=== PATIENT | female | born 1955 | race Caucasian/White ===

== ENCOUNTER 2018-10-28 16:27 | Emergency (ER) | payer OTHER ==
[~2018-10-28] VITALS: Ht 165.1 cm; Wt 127.0 kg
--- NOTE | 2018-10-28 16:35 | NUR ---
UPON TALKING TO PT - PT BEGAN DESCRIBING CHEST PRESSURE. PT TAKEN TO ROOM 08 FOR A EKG.
[2018-10-28 16:54] LABS: BASOPHILS % (AUTO) 0 % (0-10); EOSINOPHILS % (AUTO) 1 % (0-10); HEMATOCRIT 47 % (35-52); HEMOGLOBIN 15.9 G/DL (11.5-16.0); LYMPHOCYTES # (AUTO) 2.4 X 10^3 (1.0-4.0); LYMPHOCYTES % (AUTO) 30 % (12-44); MEAN CORPUSCULAR HEMOGLOBIN 32 PG (25-34); MEAN CORPUSCULAR HGB CONC 34 G/DL (32-36); MEAN CORPUSCULAR VOLUME 94 FL (80-99); MEAN PLATELET VOLUME 9.8 FL (7.4-10.4); MONOCYTES # (AUTO) 0.4 X 10^3 (0.0-1.0); MONOCYTES % (AUTO) 5 % (0-12); NEUTROPHILS # (AUTO) 5.2 X 10^3 (1.8-7.8); NEUTROPHILS % (AUTO) 65 % (42-75); PLATELET COUNT 267 10^3/uL (130-400); RED BLOOD COUNT 5.02 10^6/uL (4.35-5.85); RED CELL DISTRIBUTION WIDTH 14.1 % (10.0-14.5)
--- NOTE | 2018-10-28 16:56 | ED GI ---
General Chief Complaint: Abdominal/GI Problems Stated Complaint: SHAKY,VOMITTING,TINGLING, Nursing Triage Note: VOMITING STARTING YESTERDAY. COMPLAINS OF WEAKNESS, PALPITATIONS, SHAKEY, AND HANDS AND FEET ARE TINGLING. Sepsis Screen: No Definite Risk Source of Information: Patient Exam Limitations: No Limitations History of Present Illness Date Seen by Provider: Oct 28, 2018 Time Seen by Provider: 16:55 Initial Comments To ER with reports of dry heaving for 2 days, shakiness "on the inside", palpitations, tingling in her hands and feet. She does feel anxious. Timing/Duration: 1-2 Days Severity/Quality: Moderate Location: Generalized Abdomen Radiation: No Radiation Activities at Onset: None Associated Symptoms: Nausea/Vomiting Allergies and Home Medications Allergies Coded Allergies: cephalexin (Verified Allergy, Severe, HIVES, 10/28/18) hydromorphone (Verified Allergy, Severe, COMA, 10/28/18) codeine (Verified Allergy, Unknown, 10/28/18) famotidine (Verified Allergy, Unknown, 10/28/18) Patient Home Medication List Home Medication List Reviewed: Yes Review of Systems Review of Systems Constitutional: see HPI EENTM: No Symptoms Reported Respiratory: No Symptoms Reported Cardiovascular: No Symptoms Reported Gastrointestinal: See HPI, Nausea, Vomiting Genitourinary: No Symptoms Reported Musculoskeletal: no symptoms reported Skin: no symptoms reported Psychiatric/Neurological: See HPI, Anxiety Endocrine: No Symptoms Reported Hematologic/Lymphatic: No Symptoms Reported Past Ecuilto-Rnijbi-Kaygkh Hx Patient Social History Alcohol Use: Denies Use Recreational Drug Use: No Smoking Status: Current Everyday Smoker Recent Foreign Travel: No Contact w/Someone Who Travel: No Recent Infectious Disease Expo: No Recent Hopitalizations: No Physical Abuse: No Sexual Abuse: No Past Medical History Surgeries: Yes (GOITER REMOVED) Section Respiratory: No Cardiac: Yes High Cholesterol Neurological: No Genitourinary: No Gastrointestinal: No Musculoskeletal: No Endocrine: No HEENT: No Cancer: No Psychosocial: No Integumentary: No Physical Exam Vital Signs Vital Signs - First Documented 10/28/18 16:30 Temp 98.5 Pulse 108 Resp 16 B/P (MAP) 159/84 (109) Pulse Ox 95 O2 Delivery Room Air Capillary Refill : Less Than 3 Seconds Height/Weight/BMI Height: 5'5.00" Weight: 280lbs. oz. 127.417882nm; BMI Method:Stated General Appearance: WD/WN, no apparent distress HEENT: PERRL/EOMI, normal ENT inspection Neck: non-tender, full range of motion Respiratory: no respiratory distress, no accessory muscle use Cardiovascular: regular rate, rhythm, no murmur Gastrointestinal: normal bowel sounds, non tender, soft Extremities: normal range of motion, non-tender Neurologic/Psychiatric: alert, normal mood/affect, oriented x 3 Skin: normal color, warm/dry Progress/Results/Core Measures Results/Orders Lab Results Laboratory Tests Test 10/28/18 16:45 10/28/18 18:00 Range/Units White Blood Count 8.0 4.3-11.0 10^3/uL Red Blood Count 5.02 4.35-5.85 10^6/uL Hemoglobin 15.9 11.5-16.0 G/DL Hematocrit 47 35-52 % Mean Corpuscular Volume 94 80-99 FL Mean Corpuscular Hemoglobin 32 25-34 PG Mean Corpuscular Hemoglobin Concent 34 32-36 G/DL Red Cell Distribution Width 14.1 10.0-14.5 % Platelet Count 267 130-400 10^3/uL Mean Platelet Volume 9.8 7.4-10.4 FL Neutrophils (%) (Auto) 65 42-75 % Lymphocytes (%) (Auto) 30 12-44 % Monocytes (%) (Auto) 5 0-12 % Eosinophils (%) (Auto) 1 0-10 % Basophils (%) (Auto) 0 0-10 % Neutrophils # (Auto) 5.2 1.8-7.8 X 10^3 Lymphocytes # (Auto) 2.4 1.0-4.0 X 10^3 Monocytes # (Auto) 0.4 0.0-1.0 X 10^3 Eosinophils # (Auto) 0.0 0.0-0.3 10^3/uL Basophils # (Auto) 0.0 0.0-0.1 10^3/uL Sodium Level 138 135-145 MMOL/L Potassium Level 3.8 3.6-5.0 MMOL/L Chloride Level 100 98-107 MMOL/L Carbon Dioxide Level 25 21-32 MMOL/L Anion Gap 13 5-14 MMOL/L Blood Urea Nitrogen 6 L 7-18 MG/DL Creatinine 0.83 0.60-1.30 MG/DL Estimat Glomerular Filtration Rate > 60 BUN/Creatinine Ratio 7 Glucose Level 115 H 70-105 MG/DL Calcium Level 9.3 8.5-10.1 MG/DL Corrected Calcium 9.3 8.5-10.1 MG/DL Total Bilirubin 0.6 0.1-1.0 MG/DL Aspartate Amino Transf (AST/SGOT) 17 5-34 U/L Alanine Aminotransferase (ALT/SGPT) 16 0-55 U/L Alkaline Phosphatase 114 40-136 U/L Total Protein 6.9 6.4-8.2 GM/DL Albumin 4.0 3.2-4.5 GM/DL Lipase 19 8-78 U/L Urine Color YELLOW Urine Clarity CLEAR Urine pH 7 5-9 Urine Specific [place] 1.005 L 1.016-1.022 Urine Protein NEGATIVE NEGATIVE Urine Glucose (UA) NEGATIVE NEGATIVE Urine Ketones NEGATIVE NEGATIVE Urine Nitrite NEGATIVE NEGATIVE Urine Bilirubin NEGATIVE NEGATIVE Urine Urobilinogen NORMAL NORMAL MG/DL Urine Leukocyte Esterase 1+ H NEGATIVE Urine RBC (Auto) NEGATIVE NEGATIVE Urine RBC NONE /HPF Urine WBC RARE /HPF Urine Crystals NONE /LPF Urine Bacteria NONE /HPF Urine Casts NONE /LPF Urine Mucus NEGATIVE /LPF Urine Culture Indicated NO My Orders Orders - DONALD NEWBY APRN Cbc With Automated Diff (10/28/18 16:40) Comprehensive Metabolic Panel (10/28/18 16:40) Lipase (10/28/18 16:40) Ua Culture If Indicated (10/28/18 16:40) Iv Heplock-Insert (Order) (10/28/18 16:40) Lactated Ringers (Lr 1000 Ml Iv Solution (10/28/18 17:00) Ondansetron Injection (Zofran Injectio (10/28/18 17:00) Lorazepam Injection (Ativan Injection) (10/28/18 17:00) Lorazepam Injection (Ativan Injection) (10/28/18 17:45) Diphenhydramine Injection (Benadryl Inje (10/28/18 18:30) Diphenhydramine Injection (Benadryl Inje (10/28/18 18:30) Medications Given in ED Current Medications Medications Dose Ordered Sig/Noreen Route Start Time Stop Time Status Last Admin Dose Admin Diphenhydramine HCl 50 mg ONCE ONCE IVP 10/28/18 18:30 10/28/18 18:31 DC 10/28/18 18:27 50 MG Lorazepam 0.5 mg ONCE PRN IVP 10/28/18 17:00 10/28/18 18:11 0.5 MG Ondansetron HCl 4 mg ONCE ONCE IVP 10/28/18 17:00 10/28/18 17:01 DC 10/28/18 17:11 4 MG Vital Signs/I&O 10/28/18 16:30 Temp 98.5 Pulse 108 Resp 16 B/P (MAP) 159/84 (109) Pulse Ox 95 O2 Delivery Room Air Blood Pressure Mean: 109 Departure Impression Primary Impression: Anxiety Disposition: 01 HOME, SELF-CARE Condition: Stable Departure-Patient Inst. Decision time for Depature: 18:33 Patient Instructions: Anxiety, Adult (DC) Add. Discharge Instructions: 1. Return to ER for any concerns 2. Follow-up with your doctor next week 3. All discharge instructions reviewed with patient and/or family. Voiced understanding. DONALD NEWBY DIRECTOR OF CASINO Oct 28, 2018 16:56
[2018-10-28] MEDS ORDERED: ONDANSETRON 4 MG/2 ML (SDV) Z0FRAN IVP ONE (17:00)
[2018-10-28] MEDS ORDERED: LACTATED RINGERS 1,000 ML IV SCH (17:00)
[2018-10-28] MEDS: LORazepam INJ 2 MG/ML (ATIVAN) VIAL IVP PRN ×2 (17:11→18:11)
[2018-10-28 17:24] LABS: ALANINE AMINOTRANSFERASE 16 U/L (0-55); ALKALINE PHOSPHATASE 114 U/L (40-136); BILIRUBIN,TOTAL 0.6 MG/DL (0.1-1.0); BUN/CREATININE RATIO 7; CALCIUM 9.3 MG/DL (8.5-10.1); CARBON DIOXIDE 25 MMOL/L (21-32); CHLORIDE 100 MMOL/L (98-107); CREATININE SERUM 0.83 MG/DL (0.60-1.30); GFR ESTIMATED > 60; GLUCOSE 115 MG/DL (70-105); LIPASE 19 U/L (8-78); POTASSIUM 3.8 MMOL/L (3.6-5.0); SODIUM 138 MMOL/L (135-145); TOTAL PROTEIN 6.9 GM/DL (6.4-8.2)
[2018-10-28] MEDS ORDERED: LORazepam INJ 2 MG/ML (ATIVAN) VIAL IVP PRN (17:45)
[2018-10-28 18:07] LABS: BILIRUBIN,URINE NEGATIVE (NEGATIVE); CLARITY,URINE CLEAR; COLOR,URINE YELLOW; GLUCOSE, URINE (UA) NEGATIVE (NEGATIVE); KETONES,URINE NEGATIVE (NEGATIVE); LEUKOCYTE ESTERASE ,URINE 1+ (NEGATIVE); NITRITE,URINE NEGATIVE (NEGATIVE); PH,URINE 7 (5-9); PROTEIN,URINE NEGATIVE (NEGATIVE); UROBILINOGEN,URINE NORMAL (NORMAL)
[2018-10-28 18:15] LABS: WBC,URINE RARE /HPF
[2018-10-28] MEDS ORDERED: diphenhydrAMINE 50 MG/ML INJ (BENADRYL) IVP ONE ×2 (18:30)
[2018-10-28 19:00] VITALS: BP 146/82
== END 2018-10-28 19:00 | disposition home or self-care (01) ==
LOC: ER 16:29
DX: F41.9 Anxiety disorder, unspecified (principal); E78.00 Pure hypercholesterolemia, unspecified; F17.200 Nicotine dependence, unspecified, uncomplicated; Z98.890 Other specified postprocedural states; Z88.1 Allergy status to other antibiotic agents; Z88.5 Allergy status to narcotic agent; Z88.8 Allergy status to other drugs, medicaments and biological substances
CPT/HCPCS: 36415; 80053; 81000; 83690; 85025

== ENCOUNTER 2019-12-13 14:53 | Emergency (ER) | payer SELFPAY ==
[~2019-12-13] VITALS: Ht 162.5 cm; Wt 127.0 kg
[2019-12-13 15:07] VITALS: BP 151/75
[2019-12-13 16:08] LABS: BASOPHILS % (AUTO) 0 % (0-10); EOSINOPHILS % (AUTO) 0 % (0-10); HEMATOCRIT 40 % (35-52); HEMOGLOBIN 13.6 G/DL (11.5-16.0); LYMPHOCYTES # (AUTO) 0.9 X 10^3 (1.0-4.0); LYMPHOCYTES % (AUTO) 10 % (12-44); MEAN CORPUSCULAR HEMOGLOBIN 33 PG (25-34); MEAN CORPUSCULAR HGB CONC 34 G/DL (32-36); MEAN CORPUSCULAR VOLUME 96 FL (80-99); MEAN PLATELET VOLUME 8.5 FL (7.4-10.4); MONOCYTES # (AUTO) 0.6 X 10^3 (0.0-1.0); MONOCYTES % (AUTO) 6 % (0-12); NEUTROPHILS # (AUTO) 7.8 X 10^3 (1.8-7.8); NEUTROPHILS % (AUTO) 84 % (42-75); PLATELET COUNT 239 10^3/uL (130-400); RED CELL DISTRIBUTION WIDTH 14.4 % (10.0-14.5); WHITE BLOOD COUNT 9.4 10^3/uL (4.3-11.0)
--- NOTE | 2019-12-13 16:18 | Diagnostic Imaging Report ---
INDICATION: Fever and peripheral edema. EXAMINATION: PA and lateral chest. FINDINGS: Heart size and pulmonary vascularity are normal. Lungs are clear. There are no effusions or pneumothoraces. IMPRESSION: Negative chest. Dictated by: Dictated on workstation # [id number]
[2019-12-13 16:31] LABS: ALANINE AMINOTRANSFERASE 24 U/L (0-55); ALBUMIN 3.7 GM/DL (3.2-4.5); ALKALINE PHOSPHATASE 115 U/L (40-136); BILIRUBIN,TOTAL 0.6 MG/DL (0.1-1.0); BUN/CREATININE RATIO 7; CALCIUM 8.3 MG/DL (8.5-10.1); CARBON DIOXIDE 34 MMOL/L (21-32); CHLORIDE 81 MMOL/L (98-107); CREATININE SERUM 0.82 MG/DL (0.60-1.30); GFR ESTIMATED > 60; GLUCOSE 100 MG/DL (70-105); TOTAL PROTEIN 6.7 GM/DL (6.4-8.2)
[2019-12-13 16:32] LABS: SODIUM 120 MMOL/L (135-145)
--- NOTE | 2019-12-13 16:33 | NUR ---
LOW NA [address] BRUSH
[2019-12-13] MEDS ORDERED: KETOROLAC 30 MG/ML VIAL IVP ONE (17:30)
--- NOTE | 2019-12-13 17:48 | NUR ---
Pt reports feeling "centered" now and wants to leave AMA. Pt speaking with Dr. Acevedo.
--- NOTE | 2019-12-13 18:11 | ED General ---
General Chief Complaint: General Problems/Pain Stated Complaint: SWELLING IN LEGS/FEET Nursing Triage Note: has had a fever x 2 days and has swelling from her hips all the way down her legs, went to get into her vehicle to come to ED when she was not able to get into vehicle and had to have police assist her up and into vehicle, states she is not urinating properly Nursing Sepsis Screen: Possible Sepsis Risk Source of Information: Patient Exam Limitations: No Limitations History of Present Illness Date Seen by Provider: Dec 13, 2019 Time Seen by Provider: 15:02 Initial Comments This 64-year-old woman presents to the emergency room with primary complaint of swelling from her abdomen down through her feet. This is a new problem for her. She denies any history of congestive heart failure or hospitalization for diuresis. This has been most notable for the past 2 days. She also reports some shortness of air and cough. She had vomiting and diarrhea over the past week but that has since resolved. She complains of back aching as well. She is having some discomfort from being out of her Requip for the past 2 nights. She recently had her dose of Requip increased prior to that. She feels weak in the legs. Her primary care provider is Marleny Romero at [facility]. Allergies and Home Medications Allergies Coded Allergies: cephalexin (Verified Allergy, Severe, HIVES, 10/28/18) hydromorphone (Verified Allergy, Severe, COMA, 10/28/18) codeine (Verified Allergy, Unknown, 10/28/18) famotidine (Verified Allergy, Unknown, 10/28/18) Patient Home Medication List Home Medication List Reviewed: Yes Review of Systems Review of Systems Constitutional: see HPI EENTM: no symptoms reported Respiratory: see HPI Cardiovascular: see HPI Gastrointestinal: no symptoms reported Genitourinary: no symptoms reported : No Musculoskeletal: see HPI Skin: no symptoms reported Psychiatric/Neurological: See HPI Hematologic/Lymphatic: No Symptoms Reported Immunological/Allergic: no symptoms reported Past Ygxqobd-Jxprry-Ffmsve Hx Past Med/Social Hx: Reviewed and Corrections made Patient Social History Alcohol Use: Denies Use Recreational Drug Use: No Smoking Status: Current Everyday Smoker 2nd Hand Smoke Exposure: Yes Recent Foreign Travel: No Contact w/Someone Who Travel: No Recent Infectious Disease Expo: No Recent Hopitalizations: No Seasonal Allergies Seasonal Allergies: No Past Medical History Surgeries: Yes (GOITER REMOVED) Section Respiratory: Yes COPD Cardiac: Yes High Cholesterol Neurological: Yes (Restless leg syndrome) : No Genitourinary: No Gastrointestinal: No Musculoskeletal: No Endocrine: No HEENT: No Cancer: No Psychosocial: No Integumentary: No Family Medical History Reviewed and Corrections made Heart Disease (Heart failure) Physical Exam Vital Signs Vital Signs - First Documented 12/13/19 15:07 Temp 37.1 Pulse 100 Resp 22 B/P (MAP) 151/75 (100) Capillary Refill : Less Than 3 Seconds Height, Weight, BMI Height: 5'5.00" Weight: 280lbs. oz. 127.270745et; 48.00 BMI Method:Stated General Appearance: WD/WN, Mild Distress, Obese HEENT: PERRL/EOMI, Normal ENT Inspection Neck: Normal Inspection Respiratory: Lungs Clear, Normal Breath Sounds, No Accessory Muscle Use, No Respiratory Distress Cardiovascular: Regular Rate, Rhythm, No Murmur, Other (Pitting edema of the lower extremities, equal bilaterally) Gastrointestinal: Normal Bowel Sounds, Non Tender, Soft Extremity: Non Tender, Pedal Edema, Swelling Neurologic/Psychiatric: Alert, Oriented x3, No Motor/Sensory Deficits, Normal Mood/Affect, pmp certified project manager II-XII Norm as Tested Skin: Normal Color, Warm/Dry Progress/Results/Core Measures Suspected Sepsis Recent Fever Within 48 Hours: Yes Infection Criteria Present: Suspected New Infection New/Unexplained Altered Menta: No Sepsis Screen: Possible Sepsis Risk SIRS Temperature: Pulse: 100 Respiratory Rate: 22 Laboratory Tests 12/13/19 16:00: White Blood Count 9.4 Blood Pressure 151 /75 Mean: 100 Laboratory Tests 12/13/19 16:00: Creatinine 0.82, Platelet Count 239, Total Bilirubin 0.6 Results/Orders Lab Results Laboratory Tests Test 12/13/19 16:00 Range/Units White Blood Count 9.4 4.3-11.0 10^3/uL Red Blood Count 4.17 L 4.35-5.85 10^6/uL Hemoglobin 13.6 11.5-16.0 G/DL Hematocrit 40 35-52 % Mean Corpuscular Volume 96 80-99 FL Mean Corpuscular Hemoglobin 33 25-34 PG Mean Corpuscular Hemoglobin Concent 34 32-36 G/DL Red Cell Distribution Width 14.4 10.0-14.5 % Platelet Count 239 130-400 10^3/uL Mean Platelet Volume 8.5 7.4-10.4 FL Neutrophils (%) (Auto) 84 H 42-75 % Lymphocytes (%) (Auto) 10 L 12-44 % Monocytes (%) (Auto) 6 0-12 % Eosinophils (%) (Auto) 0 0-10 % Basophils (%) (Auto) 0 0-10 % Neutrophils # (Auto) 7.8 1.8-7.8 X 10^3 Lymphocytes # (Auto) 0.9 L 1.0-4.0 X 10^3 Monocytes # (Auto) 0.6 0.0-1.0 X 10^3 Eosinophils # (Auto) 0.0 0.0-0.3 10^3/uL Basophils # (Auto) 0.0 0.0-0.1 10^3/uL Sodium Level 120 *L 135-145 MMOL/L Potassium Level 4.0 3.6-5.0 MMOL/L Chloride Level 81 L 98-107 MMOL/L Carbon Dioxide Level 34 H 21-32 MMOL/L Anion Gap 5 5-14 MMOL/L Blood Urea Nitrogen 6 L 7-18 MG/DL Creatinine 0.82 0.60-1.30 MG/DL Estimat Glomerular Filtration Rate > 60 BUN/Creatinine Ratio 7 Glucose Level 100 70-105 MG/DL Calcium Level 8.3 L 8.5-10.1 MG/DL Corrected Calcium 8.5 8.5-10.1 MG/DL Total Bilirubin 0.6 0.1-1.0 MG/DL Aspartate Amino Transf (AST/SGOT) 32 5-34 U/L Alanine Aminotransferase (ALT/SGPT) 24 0-55 U/L Alkaline Phosphatase 115 40-136 U/L C-Reactive Protein High Sensitivity 2.36 H 0.00-0.50 MG/DL B-Type Natriuretic Peptide 42.7 <100.0 PG/ML Total Protein 6.7 6.4-8.2 GM/DL Albumin 3.7 3.2-4.5 GM/DL Thyroid Stimulating Hormone (TSH) 4.04 0.35-4.94 UIU/ML Free Thyroxine 1.10 0.70-1.48 NG/DL Micro Results Microbiology 12/13/19 Influenza Types A,B Antigen (JAMAL) - Final, Complete My Orders Orders - KEELY HSIEH MD BNP (12/13/19 15:02) Cbc With Automated Diff (12/13/19 15:02) Comprehensive Metabolic Panel (12/13/19 15:02) Ed Iv/Invasive Line Start (12/13/19 15:02) Hs C Reactive Protein (12/13/19 15:50) Influenza A And B Antigens (12/13/19 15:50) Chest Pa/Lat (2 View) (12/13/19 15:50) Ketorolac Injection (Toradol Injection) (12/13/19 17:30) Thyroid Stimulating Hormone (12/13/19 17:49) Free T4 (Free Thyroxine) (12/13/19 17:49) Medications Given in ED Current Medications Medications Dose Ordered Sig/Noreen Route Start Time Stop Time Status Last Admin Dose Admin Ketorolac Tromethamine 15 mg ONCE ONCE IVP 12/13/19 17:30 12/13/19 17:31 DC 12/13/19 17:44 15 MG Vital Signs/I&O 12/13/19 15:07 Temp 37.1 Pulse 100 Resp 22 B/P (MAP) 151/75 (100) Capillary Refill : Less Than 3 Seconds Blood Pressure Mean: 100 Progress Note : Progress Note Patient was found to have significant hyponatremia. Cymbalta and trazodone may be contributing factors to this as they both have known side effects of hyponatremia and SIADH. I strongly advised patient to be admitted for her safety while we work on correcting her hyponatremia. Patient refused and requested to leave AGAINST MEDICAL ADVICE. I advised her of the potential for Cymbalta and trazodone to be causing her hyponatremia. However, I also warned her against the possibility of withdrawal if she abruptly stops these medications. A taper would be more appropriate. Advised for follow up promptly with her primary care provider. I did advise her of the risks of returning home AGAINST MEDICAL ADVICE which would include worsening altered mental status, worsening weakness, potential for fall and injury, etc. Patient acknowledged these risks and still elected to leave AGAINST MEDICAL ADVICE. Patient's back pain was treated with Toradol. Diagnostic Imaging Diagonstic Imaging: Xray Plain Films/CT/US/NM/MRI: chest Comments NAME: JAYSON SOARES J MED REC#: [id number] PT STATUS: REG ER : 1955 PHYSICIAN: KEELY HSIEH MD ADMIT DATE: 12/13/19/ER Signed Date of Exam:12/13/19 CHEST PA/LAT (2 VIEW) INDICATION: Fever and peripheral edema. EXAMINATION: PA and lateral chest. FINDINGS: Heart size and pulmonary vascularity are normal. Lungs are clear. There are no effusions or pneumothoraces. IMPRESSION: Negative chest. Dictated by: Dictated on workstation # [id number] Dict: 12/13/19 1613 Trans: 12/13/19 1632 [id number] Interpreted by: AKIL LOWRY MD Electronically signed by: AKIL LOWRY MD 12/13/19 1632 Departure Impression Primary Impression: Hyponatremia Additional Impressions: Lower extremity edema Left against medical advice Low back pain Qualified Codes: M54.5 - Low back pain Disposition: 07 AGAINST MEDICAL ADVICE Condition: Against Medical Advice Departure-Patient Inst. Referrals: [facility] (PCP) Primary Care Physician Copy Copies To 1: WILL GARBER JOSHUA T MD Dec 13, 2019 18:10
[2019-12-13 18:29] LABS: FREE T4 (FREE THYROXINE) 1.1 NG/DL (0.70-1.48)
== END 2019-12-13 17:57 | disposition left against medical advice (07) ==
LOC: EDUNIT# 14:53 → ER 14:54
DX: E87.1 Hypo-osmolality and hyponatremia (principal); R60.0 Localized edema; M54.5 Low back pain; F17.210 Nicotine dependence, cigarettes, uncomplicated; Z82.49 Family history of ischemic heart disease and other diseases of the circulatory system; Z88.1 Allergy status to other antibiotic agents; Z88.5 Allergy status to narcotic agent; Z88.8 Allergy status to other drugs, medicaments and biological substances; Z98.890 Other specified postprocedural states
CPT/HCPCS: 36415; 71046; 80053; 83880; 84439; 84443; 85025; 86141; 87804

== ENCOUNTER → 2022-01-17 | Outpatient (CLI) | payer MEDICARE, MEDICAID ==
[~2022-01-17] MED LIST: RT-ALBUTEROL SULF 2.5 MG/3 ML PRE-MIX VIAL INH ONE
== END ==
LOC: RT 10:45
PROVIDERS: ATTEND Internal Medicine
DX: R06.2 Wheezing (principal)
CPT/HCPCS: 94060; 94726; 94729

== ENCOUNTER 2022-09-23 09:47 | Emergency (ER) | payer MEDICARE, MEDICAID ==
[~2022-09-23] VITALS: Ht 165.1 cm; Wt 127.0 kg
[2022-09-23] MEDS ORDERED: HYDROcodone/Chlorpen 10MG/5 ML (TUSSIONEX) 5ML UDC PO ONE (10:30)
--- NOTE | 2022-09-23 10:31 | ED Cough/URI ---
General Chief Complaint: Respiratory Problems Stated Complaint: SOB Source: patient Exam Limitations: no limitations History of Present Illness Date Seen by Provider: Sep 23, 2022 Time Seen by Provider: 10:20 Timing/Duration: week Severity/Quality: productive cough Prior Episodes/Possible Cause: occasional episodes Modifying Factors: Improves With Albuterol Inhaler, Improves With Albuterol Nebulizer; Worse With Lying Down; Improves With Oxygen Associated Symptoms: chest pain/soreness, cough, nasal congestion, nasal drainage, shortness of breath, sore throat, wheezing Allergies and Home Medications Allergies Coded Allergies: cephalexin (Verified Allergy, Severe, HIVES, 09/23/22) hydromorphone (Verified Allergy, Severe, COMA, 09/23/22) codeine (Verified Allergy, Unknown, 09/23/22) famotidine (Verified Allergy, Unknown, 09/23/22) Patient Home Medication List Home Medication List Reviewed: Yes Albuterol Sulfate (Albuterol Sulfate) 2.5 Mg/3 Ml (0.083 %) Vial.neb, 2.5 MG INH Q6H PRN for WHEEZING Prescribed by: FAY YIN on 09/23/22 1408 Amoxicillin (Amoxicillin) 875 Mg Tablet, 875 MG PO BID Prescribed by: FAY YIN on 09/23/22 1408 Azithromycin (Azithromycin) 250 Mg Tablet, 250 MG PO DAILY Prescribed by: FAY YIN on 09/23/22 1408 Hydrocodone/Chlorphen P-Stirex (Hydrocodone-Chlorphen ER Susp) 10 Mg-8 Mg/5 Ml Sara.er.12h, 5 ML PO Q6H PRN for cough/congestion Prescribed by: FAY YIN on 09/23/22 1412 Prednisone (Prednisone) 50 Mg Tab, 50 MG PO DAILY Prescribed by: FAY YIN on 09/23/22 1411 Review of Systems Review of Systems Constitutional: see HPI EENTM: nose congestion Respiratory: cough, phlegm, short of breath Cardiovascular: no symptoms reported Gastrointestinal: loss of appetite Genitourinary: no symptoms reported Musculoskeletal: no symptoms reported Skin: no symptoms reported Psychiatric/Neurological: Headache All Other Systems Reviewed Negative Unless Noted: Yes Past Imbvxdg-Anrdll-Xfmzew Hx Patient Social History Tobacco Use?: Yes Tobacco type used: Cigarettes Smoking Status: Current Everyday Smoker Substance use?: No Alcohol Use?: No Pt feels they are or have been: No Immunizations Up To Date Influenza Vaccine Up-to-Date: Yes; Up-to-Date First/Initial COVID19 Vaccinat: 2020 Second COVID19 Vaccination Lalit: 2020 COVID19 Vaccine Dynamics Ax Technical Architect: adrienne Seasonal Allergies Seasonal Allergies: No Past Medical History Surgery/Hospitalization HX: RLS, HTN, GERD, COPD Surgeries: Yes (GOITER REMOVED) Section Respiratory: Yes COPD Cardiac: Yes High Cholesterol Neurological: Yes (Restless leg syndrome) Genitourinary: No Gastrointestinal: No Musculoskeletal: No Endocrine: No HEENT: No Cancer: No Psychosocial: No Integumentary: No Family Medical History Heart Disease Physical Exam Vital Signs - First Documented 09/23/22 09:50 Temp 36.8 Pulse 104 Resp 13 B/P (MAP) 176/83 (114) Pulse Ox 100 O2 Delivery Nasal Cannula O2 Flow Rate 2.00 Capillary Refill : Height: 5'5.00" Weight: 280lbs. oz. 127.487703rp; 48.00 BMI Method:Stated General Appearance: WD/WN, mild distress Eyes: Bilateral Eye Normal Inspection, Bilateral Eye PERRL, Bilateral Eye EOMI HEENT: PERRL/EOMI, normal ENT inspection, TMs normal, pharynx normal, other (nasal mucosal congestion) Neck: full range of motion, supple Respiratory: other (Coarse expiratory rhonchus/wheezy breath sounds with coarse wet cough noted. No increased work of breathing or respiratory distress.) Cardiovascular: regular rate, rhythm, tachycardia (100) Gastrointestinal: non tender, soft Extremities: normal range of motion, non-tender, normal inspection, no pedal edema Neurologic/Psychiatric: alert, normal mood/affect, oriented x 3 Skin: normal color, warm/dry Progress/Results/Core Measures Suspected Sepsis SIRS Temperature: Pulse: Respiratory Rate: Blood Pressure / Mean: Results/Orders Lab Results Laboratory Tests Test 09/23/22 10:00 Range/Units Influenza Type A (RT-PCR) Not Detected Not Detecte Influenza Type B (RT-PCR) Not Detected Not Detecte SARS-CoV-2 RNA (RT-PCR) Not Detected Not Detecte My Orders Orders - FAY YIN MD Chest 1 View, Ap/Pa Only (09/23/22 10:28) Covid 19 Inhouse Test (09/23/22 10:28) Influenza A And B By Pcr (09/23/22 10:28) Isolation Central Supply Req (09/23/22 10:28) Hydrocodone/Chlorphen Susp (Tussionex Sadler (09/23/22 10:30) Albuterol Pre-Mix Nebs (Rt) (Proventil (09/23/22 11:45) Albuterol/Ipra Inhalation Soln (Duoneb I (09/23/22 11:45) Svn Small Volume Nebulizer (09/23/22 11:45) Svn Small Volume Nebulizer (09/23/22 11:45) Prednisone Tablet (Deltasone Tablet) (09/23/22 11:45) Communication For Respiratory (09/23/22 11:45) Azithromycin Tablet (Zithromax Tablet) (09/23/22 14:15) Amoxicillin/Clavulanate Tablet (Augmenti (09/23/22 14:01) Medications Given in ED Current Medications Medications Dose Ordered Sig/Noreen Route Start Time Stop Time Status Last Admin Dose Admin Albuterol Sulfate 10 mg ONCE ONCE INH 09/23/22 11:45 09/23/22 11:47 DC 09/23/22 12:17 10 MG Albuterol/ Ipratropium 3 ml ONCE ONCE INH 09/23/22 11:45 09/23/22 11:47 DC 09/23/22 12:17 3 ML Azithromycin 500 mg ONCE ONCE PO 09/23/22 14:15 09/23/22 14:16 09/23/22 14:10 500 MG Chlorphenir/ Hydrocodone Polistirex 5 ml ONCE ONCE PO 09/23/22 10:30 09/23/22 10:31 DC 09/23/22 11:36 5 ML Prednisone 50 mg ONCE ONCE PO 09/23/22 11:45 09/23/22 11:47 DC 09/23/22 12:12 50 MG Vital Signs/I&O 09/23/22 09/23/22 09:50 12:21 Temp 36.8 Pulse 104 Resp 13 B/P (MAP) 176/83 (114) Pulse Ox 100 100 O2 Delivery Nasal Cannula Nasal Cannula O2 Flow Rate 2.00 2.00 Capillary Refill : Progress Note : Time: 14:02 Progress Note Patient seen and evaluated, productive cough over the last 4 to 5 days, subjective fevers chills, congestion. Evaluation today includes physical exam with flu and COVID testing, chest x-ray. She is treated with prednisone, nausea medication and urag-bt-wmsf breathing treatments. Reexamined approximately 30 minutes after her breathing treatment was completed patient feels much much better. Laying in the bed however she does drop her oxygen sats down to 88%. She is in no respiratory distress when she sits up and coughs and clears her lungs her sats come up to 95 to 96% on room air. She is still tachy at 110 - up to 122 when she coughs and talks. (did have almost an hour long albuterol treatment and duoneb). SHe clinically is not dehydrated. No increased work of breathing or distress. No vomiting and tolerating fluids orally well. She does not use home oxygen. Has a nebulizer. She is not very interested in staying in the hospital. I talked to her about staying active at home, checking her pulse ox frequently and being compliant wi th her medications. We will send her home with prescriptions for amoxicillin 875 twice daily for 10 days as well as azithromycin. She will need medications for cough as well as her nebulizer and some nausea medications. She is encouraged to drink plenty of fluids. Smoking cessation is encouraged. Strict return precautions given and the patient verbalized understanding and agreement that if her pulse ox dropped below 90 and she is feeling worse after the next 24 to 48 hours on antibiotics she will come back to the emergency department. is comfortable with the plan of care. All questions are sought and answered. Patient is stable for discharge. Diagnostic Imaging Diagonstic Imaging: Xray Plain Films/CT/US/NM/MRI: chest Comments [facility], [facility]. [place], [place] NAME: JAYSON SOARES MED REC#: [id number] PT STATUS: REG ER : 1955 PHYSICIAN: FAY YIN MD ADMIT DATE: 09/23/22/ER Draft Date of Exam:09/23/22 CHEST 1 VIEW, AP/PA ONLY CLINICAL INDICATION: Patient with shortness of breath and productive cough. EXAM: Portable chest x-ray upright view. COMPARISON: Chest x-ray dated 12/13/2019. FINDINGS: Lungs/pleura: There is mild bibasilar atelectasis versus infiltrates. There is no pneumothorax. There is no pleural effusion. Mediastinum: Unremarkable. Pulmonary vasculature: Unremarkable. Heart: There is cardiomegaly. Bones/extrathoracic soft tissue: There are degenerative spurs involving the thoracic spine. IMPRESSION: 1: There is mild bibasilar atelectasis versus infiltrates. 2: There is cardiomegaly with no significant pulmonary vascular congestion. Dictated on workstation # [id number] Dict: 09/23/22 1139 Trans: 09/23/22 1145 CV [id number] Interpreted by: JUDITH GUERRA MD Electronically signed by: Departure Impression Primary Impression: Acute exacerbation of chronic obstructive pulmonary disease (COPD) Additional Impression: Pneumonia Qualified Codes: J18.9 - Pneumonia, unspecified organism Disposition: 01 HOME, SELF-CARE Condition: Improved Departure-Patient Inst. Decision time for Depature: 12:20 Referrals: [facility] [place] [facility] [place]/Family) Primary Care Physician Patient Instructions: Pneumonia, Adult (DC) Add. Discharge Instructions: Use the albuterol in her nebulizer every 6 hours as needed for shortness of breath. If you have enough of the double medication you can alternate that with the albuterol. Take the antibiotics as prescribed. 1 will be for a course of 10 days 1 for 4 more days after today. Use the Tussionex as needed for cough. 1 teaspoon every 6 hours. This medication can make you sleepy do not drive and take it. It does contain h ydrocodone. It can be habit-forming. It can also cause constipation. Prednisone 50 mg once a day starting tomorrow for 4 days. Monitor your oxygen with your finger monitor at home. If you find that you are dipping down repeatedly below 90% you need to come back to the emergency department and you will be admitted. Return to the emergency room for any other new, concerning or emergent complaints. Please follow-up with your primary care doctor this week as well. Scripts Hydrocodone/Chlorphen P-Stirex (Hydrocodone-Chlorphen ER Susp) 10 Mg-8 Mg/5 Ml Sara.er.12h 5 ML PO Q6H PRN for cough/congestion, #100 ML Prov: FAY YIN MD 09/23/22 Prednisone (Prednisone) 50 Mg Tab 50 MG PO DAILY for 4 Days, #4 TAB Prov: FAY YIN MD 09/23/22 Azithromycin (Azithromycin) 250 Mg Tablet 250 MG PO DAILY, #4 TAB 0 Refills Prov: FAY YIN MD 09/23/22 Amoxicillin (Amoxicillin) 875 Mg Tablet 875 MG PO BID, #19 TAB Prov: FAY YIN MD 09/23/22 Albuterol Sulfate (Albuterol Sulfate) 2.5 Mg/3 Ml (0.083 %) Vial.neb 2.5 MG INH Q6H PRN for WHEEZING, #50 EA 1 Refill Prov: FAY YIN MD 09/23/22 FAY YIN MD Sep 23, 2022 10:31
[2022-09-23] MEDS ORDERED: RT-ALBUTEROL/IPRATROPIUM 3 ML (DUONEB) VIAL INH ONE (11:45)
[2022-09-23] MEDS ORDERED: predniSONE 20 MG TAB PO ONE (11:45)
[2022-09-23] MEDS ORDERED: RT-ALBUTEROL SULF 2.5 MG/3 ML PRE-MIX VIAL INH ONE (11:45)
--- NOTE | 2022-09-23 11:45 | Diagnostic Imaging Report ---
CLINICAL INDICATION: Patient with shortness of breath and productive cough. EXAM: Portable chest x-ray upright view. COMPARISON: Chest x-ray dated 12/13/2019. FINDINGS: Lungs/pleura: There is mild bibasilar atelectasis versus infiltrates. There is no pneumothorax. There is no pleural effusion. Mediastinum: Unremarkable. Pulmonary vasculature: Unremarkable. Heart: There is cardiomegaly. Bones/extrathoracic soft tissue: There are degenerative spurs involving the thoracic spine. IMPRESSION: 1: There is mild bibasilar atelectasis versus infiltrates. 2: There is cardiomegaly with no significant pulmonary vascular congestion. Dictated by: Dictated on workstation # [id number]
[2022-09-23] MEDS ORDERED: AUGMENTIN 875 MG TAB (AMOXICILLIN/CLAVULANATE) PO STA (14:01)
[2022-09-23] MEDS ORDERED: AZIT250T12 PO (14:08)
[2022-09-23] MEDS ORDERED: ALBU2.5V4 INH (14:08)
[2022-09-23] MEDS ORDERED: AMOX875T2 PO (14:08)
[2022-09-23] MEDS ORDERED: PRD50T PO (14:11)
[2022-09-23] MEDS ORDERED: HYDR473S61 PO (14:11)
[2022-09-23] MEDS ORDERED: AZITHROMYCIN 250 MG TAB (ZITHROMAX) PO ONE (14:15)
[2022-09-23 14:24] VITALS: BP 165/76
== END 2022-09-23 14:31 | disposition home or self-care (01) ==
LOC: EDUNIT# 09:47 → ER 09:49
DX: J44.1 Chronic obstructive pulmonary disease with (acute) exacerbation (principal); J18.9 Pneumonia, unspecified organism; F17.210 Nicotine dependence, cigarettes, uncomplicated; Z20.822 Contact with and (suspected) exposure to COVID-19
CPT/HCPCS: 71045; 87636; 94640

== ENCOUNTER 2023-01-25 13:53 | Emergency (ER) | payer MEDICARE, MEDICAID ==
[~2023-01-25] VITALS: Ht 165 cm; Wt 117.0 kg
[~2023-01-25 13:53] MED LIST changes: +ALBU2.5V4 INH; +AMOX875T2 PO; +AZIT250T12 PO; +HYDR473S61 PO; +PRD50T PO; -RT-ALBUTEROL SULF 2.5 MG/3 ML PRE-MIX VIAL INH ONE
[2023-01-25] MEDS ORDERED: HYDROcodone/APAP 7.5 MG/325 MG (LORTAB, LORCET PLUS) TABLET PO STA (14:44)
[2023-01-25] MEDS ORDERED: ORPHENADRINE 60 MG/2 ML (NORFLEX) AMP (ED ONLY) IM ONE (14:45)
[2023-01-25] MEDS ORDERED: KETOROLAC 30 MG/ML VIAL IM ONE (14:45)
--- NOTE | 2023-01-25 14:47 | ED Back Pain ---
General Chief Complaint: Back Problems Stated Complaint: BACK PAIN Nursing Triage Note: PT PRESENTS TO ED WITH C/O LOW BACK PAIN THAT RADIATES DOWN LEFT LEG AFTER FEELING A "PULL" WHILE MOVING HER BEDROOM FURNITURE AROUND YESTERDAY. PT HAS HX OF SCIATICA ISSUES AND IS PRESCRIBED TRAMADOL. PT TOOK TRAMADOL AND TRIED BIOFREEZE BUT NEITHER HELPED THE PAIN. PT AMBULATED WITH CANE TO ROOM 07. Source of Information: Patient Exam Limitations: No Limitations History of Present Illness Date Seen by Provider: Jan 25, 2023 Time Seen by Provider: 14:45 Initial Comments Patient is a 67-year-old female presents ED with low back pain. Back pain started yesterday afternoon after she was moving furniture. [place] a sharp pain on the left side of her lower back. Pain has been constant. Sharp shooting radiating pain to the left knee with a history of sciatica. She did take some tramadol at home and arthritis Exer strength Tylenol without much improvement. Denies falling or any trauma. Patient denies of any saddle paresthesia, bowel or urine incontinence, lower extremity weakness. She states this pain feels very similar to her when she aggravates her sciatica. She denies fever, chills, headache, dizziness, nausea, vomiting, diarrhea Allergies and Home Medications Allergies Coded Allergies: cephalexin (Verified Allergy, Severe, HIVES, 09/23/22) hydromorphone (Verified Allergy, Severe, COMA, 09/23/22) codeine (Verified Allergy, Unknown, 09/23/22) famotidine (Verified Allergy, Unknown, 09/23/22) Patient Home Medication List Home Medication List Reviewed: Yes Albuterol Sulfate (Albuterol Sulfate) 2.5 Mg/3 Ml (0.083 %) Vial.neb, 2.5 MG INH Q6H PRN for WHEEZING Prescribed by: FAY YIN on 09/23/22 1408 Amoxicillin (Amoxicillin) 875 Mg Tablet, 875 MG PO BID Prescribed by: FAY YIN on 09/23/22 1408 Azithromycin (Azithromycin) 250 Mg Tablet, 250 MG PO DAILY Prescribed by: FAY YIN on 09/23/22 1408 Hydrocodone/Acetaminophen (Hydrocodone-Acetamin 5-325 mg) 5 Mg-325 Mg Tablet, 1 TAB PO Q4H PRN for PAIN-MODERATE (5-7) Prescribed by: LILY CONTRERAS on 01/25/23 1554 Hydrocodone/Chlorphen P-Stirex (Hydrocodone-Chlorphen ER Susp) 10 Mg-8 Mg/5 Ml Sara.er.12h, 5 ML PO Q6H PRN for cough/congestion Prescribed by: FAY YIN on 09/23/22 1412 Methocarbamol (Methocarbamol) 750 Mg Tablet, 750 MG PO Q6-8HR Prescribed by: ILLY CONTRERAS on 01/25/23 1554 Prednisone (Prednisone) 50 Mg Tab, 50 MG PO DAILY Prescribed by: FAY YIN on 09/23/22 1411 Review of Systems Constitutional: No chills, No diaphoresis, No malaise EENTM: No ear discharge, No blurred vision, No double vision Respiratory: No cough, No dyspnea on exertion Cardiovascular: No chest pain, No edema Gastrointestinal: No RUQ, No abdominal pain, No nausea, No vomiting Genitourinary: No decreased output, No discharge Musculoskeletal: back pain; No joint swelling; muscle pain, muscle stiffness Skin: No change in color, No change in hair/nails All Other Systems Reviewed Negative Unless Noted: Yes Past Ctnidrd-Xcfaqx-Rrzqad Hx Patient Social History Tobacco Use?: Yes Tobacco type used: Cigarettes Smoking Status: Current Everyday Smoker Substance use?: No Alcohol Use?: No Immunizations Up To Date Influenza Vaccine Up-to-Date: Yes; Up-to-Date First/Initial COVID19 Vaccinat: 2020 Second COVID19 Vaccination Lalit: 2020 Seasonal Allergies Seasonal Allergies: No Past Medical History Surgery/Hospitalization HX: RLS, HTN, GERD, COPD Surgeries: Yes (GOITER REMOVED) Section Respiratory: Yes COPD Cardiac: Yes High Cholesterol Neurological: Yes (Restless leg syndrome) Genitourinary: No Gastrointestinal: No Musculoskeletal: No Endocrine: No HEENT: No Cancer: No Psychosocial: No Integumentary: No Family Medical History Heart Disease Physical Exam Vital Signs Vital Signs - First Documented 01/25/23 14:09 Temp 35.5 Pulse 91 Resp 22 B/P (MAP) 147/102 (117) Pulse Ox 95 O2 Delivery Room Air Capillary Refill : Height, Weight, BMI Height: 5'5.00" Weight: 280lbs. oz. 127.137098wi; 42.00 BMI Method:Stated General Appearance: No Apparent Distress, WD/WN HEENT: PERRL/EOMI, TMs Normal, Normal ENT Inspection Neck: Full Range of Motion, Normal Inspection, Non Tender, Supple Cardiovascular: Regular Rate, Rhythm, No Edema, No Gallop, No JVD Respiratory: Chest Non Tender, Lungs Clear, Normal Breath Sounds, No Accessory Muscle Use Gastrointestinal: Normal Bowel Sounds, No Organomegaly, No Pulsatile Mass, Non Tender Back: Other (No thoracic or lumbar midline tenderness. Left lumbar and buttock tenderness on palpation. Pain with flexion) Extremity: Normal Capillary Refill, Normal Inspection, Normal Range of Motion, Non Tender Neurologic/Psychiatric: Alert, Oriented x3, No Motor/Sensory Deficits, Normal Mood/Affect, ground crew linesman II-XII Norm as Tested Progress/Results/Core Measures Results/Orders My Orders Orders - JAEL AKHTAR Hydrocodone/Apap 7.5/325 Tab (Lortab 7. (01/25/23 14:44) Ketorolac Injection (Toradol Injection) (01/25/23 14:45) Orphenadrine Inj (Ed Only) (Norflex Inje (01/25/23 14:45) Medications Given in ED Current Medications Medications Dose Ordered Sig/Noreen Route Start Time Stop Time Status Last Admin Dose Admin Ketorolac Tromethamine 30 mg ONCE ONCE IM 01/25/23 14:45 01/25/23 14:46 DC 01/25/23 15:39 30 MG Orphenadrine Citrate 60 mg ONCE ONCE IM 01/25/23 14:45 01/25/23 14:46 DC 01/25/23 15:39 60 MG Vital Signs/I&O 01/25/23 14:09 Temp 35.5 Pulse 91 Resp 22 B/P (MAP) 147/102 (117) Pulse Ox 95 O2 Delivery Room Air Blood Pressure Mean: 117 Departure Communication (PCP) Patient is a 67-year-old female presents to ED for left lower back pain. Differential diagnosis of low muscle strain, bulging disc. She was moving furniture yesterday felt a sharp pain in her lower back. Back pain has been constant worse with any type of movement. Pain located to the left lumbar paraspinal muscle. No thoracic or lumbar midline tenderness. she took tramadol extra strength Tylenol at home without much improvement. She has no neurological red flag findings such as bowel or urine incontinence, saddle paresthesia. No evidence of lower leg weakness. History of left-sided sciatica. Due to no injury and no neurological red flag findings imaging was held. She was given a dose of Toradol, Norflex and hydrocodone with some improvement. Will discharge with hydrocodone, Robaxin. Discussed rest and stretching. Further evaluation outpatient with primary care physician as needed. If any neurological findings to return back to ED for further evaluation such as bowel or urine incontinence, saddle paresthesia. Return precaution were discussed. No urinary symptoms Impression Primary Impression: Low back pain Disposition: HOME, SELF-CARE Condition: Stable Departure-Patient Inst. Decision time for Depature: 15:52 Referrals: ANIKA DAWSON DO (PCP/Family) Primary Care Physician Patient Instructions: Back Muscle Strain (DC), Low Back Pain (DC) Scripts Hydrocodone/Acetaminophen (Hydrocodone-Acetamin 5-325 mg) 5 Mg-325 Mg Tablet 1 TAB PO Q4H PRN for PAIN-MODERATE (5-7), #10 TAB Prov: JAEL AKHTAR 01/25/23 Methocarbamol (Methocarbamol) 750 Mg Tablet 750 MG PO Q6-8HR for Back Pain, #20 TAB Prov: JAEL AKHTAR 01/25/23 JAEL AKHTAR Jan 25, 2023 14:47
[2023-01-25] MEDS ORDERED: ACHD5005 PO ×2 (15:54→16:03)
[2023-01-25] MEDS ORDERED: METH-732 PO ×2 (15:54→16:03)
[2023-01-25 16:02] VITALS: BP 137/69
== END 2023-01-25 16:02 | disposition home or self-care (01) ==
LOC: EDUNIT# 13:53 → ER 13:57
DX: M54.50 Low back pain, unspecified (principal); F17.210 Nicotine dependence, cigarettes, uncomplicated; Z88.5 Allergy status to narcotic agent; X50.1XXA Overexertion from prolonged static or awkward postures, initial encounter
CPT/HCPCS: 99284

== ENCOUNTER 2023-03-05 07:22 | Inpatient (IN) | payer MEDICAID, MEDICARE ==
[~2023-03-05] VITALS: Ht 165.1 cm; Wt 124.5 kg
[~2023-03-05 07:22] MED LIST changes: +ACHD5005 PO; +METH-732 PO
--- NOTE | 2023-03-05 07:44 | ED Cough/URI ---
General Chief Complaint: Respiratory Problems Stated Complaint: SOB | LOWER BACK PAIN Source: patient, family Exam Limitations: no limitations History of Present Illness Date Seen by Provider: March 05, 2023 Time Seen by Provider: 07:35 Initial Comments 67-year-old female with history of COPD, chronic low back pain presents emergency department today for shortness of breath and low back pain. Shortness of breath symptoms started yesterday with increased cough and wheezing. She has been using her nebulizer at home as well as her routine inhalers without much relief. She denies any fevers chills or sick contacts. No chest pain. She does not typically wear oxygen her oxygen saturation on arrival was 85% on room air. She was placed on 2 L of oxygen via nasal cannula which brought her into the mid 90s. Regarding her low back pain, this is more chronic issue for her. She takes tramadol regularly for appointments morning and has not really helped. She denies any new symptoms, loss of bowel or bladder control, urinary retention. No lower extremity weakness numbness or tingling. All other systems reviewed and negative except documented per HPI. Voice recognition software was used to help create this chart Allergies and Home Medications Allergies Coded Allergies: cephalexin (Verified Allergy, Severe, HIVES, 09/23/22) hydromorphone (Verified Allergy, Severe, COMA, 09/23/22) codeine (Verified Allergy, Unknown, 09/23/22) famotidine (Verified Allergy, Unknown, 09/23/22) Patient Home Medication List Home Medication List Reviewed: Yes Albuterol Sulfate (Albuterol Sulfate) 2.5 Mg/3 Ml (0.083 %) Vial.neb, 2.5 MG INH Q6H PRN for WHEEZING Prescribed by: FAY YIN on 09/23/22 1408 Amoxicillin (Amoxicillin) 875 Mg Tablet, 875 MG PO BID Prescribed by: FAY YIN on 09/23/22 1408 Azithromycin (Azithromycin) 250 Mg Tablet, 250 MG PO DAILY Prescribed by: FAY IYN on 09/23/22 1408 Hydrocodone/Acetaminophen (Hydrocodone-Acetamin 5-325 mg) 5 Mg-325 Mg Tablet, 1 TAB PO Q4H PRN for PAIN-MODERATE (5-7) Prescribed by: LILY CONTRERAS on 01/25/23 1603 Hydrocodone/Chlorphen P-Stirex (Hydrocodone-Chlorphen ER Susp) 10 Mg-8 Mg/5 Ml Sara.er.12h, 5 ML PO Q6H PRN for cough/congestion Prescribed by: FAY YIN on 09/23/22 1412 Methocarbamol (Methocarbamol) 750 Mg Tablet, 750 MG PO Q6-8HR Prescribed by: LILY CONTRERAS on 01/25/23 1603 Prednisone (Prednisone) 50 Mg Tab, 50 MG PO DAILY Prescribed by: FAY YIN on 09/23/22 1411 Review of Systems Review of Systems Constitutional: see HPI Past Cobdggj-Whkaez-Ldjrxu Hx Patient Social History Tobacco Use?: No Use of E-Cig and/or Vaping dev: No Substance use?: No Alcohol Use?: No Immunizations Up To Date First/Initial COVID19 Vaccinat: 2020 Second COVID19 Vaccination Lalit: 2020 Seasonal Allergies Seasonal Allergies: No Past Medical History Surgery/Hospitalization HX: RLS, HTN, GERD, COPD Surgeries: Yes (GOITER REMOVED) Section Respiratory: Yes COPD Cardiac: Yes High Cholesterol Neurological: Yes (Restless leg syndrome) Genitourinary: No Gastrointestinal: No Musculoskeletal: No Endocrine: No HEENT: No Cancer: No Psychosocial: No Integumentary: No Family Medical History Heart Disease Physical Exam Vital Signs - First Documented 03/05/23 07:28 Temp 36.7 Pulse 82 Resp 20 B/P (MAP) 117/99 (105) Pulse Ox 96 O2 Delivery Room Air O2 Flow Rate 2.00 Capillary Refill : Height: 5'5.00" Weight: 280lbs. oz. 127.225195zv; 42.00 BMI Method:Stated General Appearance: WD/WN, no apparent distress, other (Tenderness palpation bilateral lateral lumbar region. No midline tenderness.) HEENT: normal ENT inspection, pharynx normal Neck: non-tender, full range of motion, supple, normal inspection Respiratory: chest non-tender, no respiratory distress, no accessory muscle use, other (Coarse breath sounds bilaterally with scant inspiratory and expiratory wheezing.) Cardiovascular: normal peripheral pulses, regular rate, rhythm, no edema, no murmur Gastrointestinal: normal bowel sounds, non tender, soft, no organomegaly Extremities: normal range of motion, non-tender, normal inspection, no pedal edema, normal capillary refill Neurologic/Psychiatric: alert, normal mood/affect, oriented x 3 Skin: normal color, warm/dry Focused Exam Lactate Level 03/05/23 07:45: Lactic Acid Level 1.27 Lactic Acid Level Laboratory Tests Test 03/05/23 07:45 Lactic Acid Level 1.27 MMOL/L (0.50-2.00) Procedures/Interventions Date of ETT Placement: March 05, 2023 Time of ETT Placement: 11:10 Intubation Method: orotracheal Tube Size: 7.5 Medications: Etomidate, Rocuronium Positive End Tide CO2: Yes Breath Sounds after Intubation: bilateral-equal Intubation Complications: no complications Post Intubation Xray: Yes Progress/Results/Core Measures Suspected Sepsis SIRS Temperature: Pulse: Respiratory Rate: Laboratory Tests 03/05/23 07:30: White Blood Count 9.2 Blood Pressure / Mean: 03/05/23 07:45: Lactic Acid Level 1.27 Laboratory Tests 03/05/23 07:30: Creatinine 0.93, Platelet Count 230, Total Bilirubin 0.3 Results/Orders Lab Results Laboratory Tests Test 03/05/23 07:30 03/05/23 07:45 03/05/23 07:55 03/05/23 08:40 Range/Units White Blood Count 9.2 4.3-11.0 10^3/uL Red Blood Count 4.54 3.80-5.11 10^6/uL Hemoglobin 14.3 11.5-16.0 g/dL Hematocrit 44 35-52 % Mean Corpuscular Volume 98 80-99 fL Mean Corpuscular Hemoglobin 32 25-34 pg Mean Corpuscular Hemoglobin Concent 32 32-36 g/dL Red Cell Distribution Width 14.9 H 10.0-14.5 % Platelet Count 230 130-400 10^3/uL Mean Platelet Volume 9.7 9.0-12.2 fL Immature Granulocyte % (Auto) 0 % Neutrophils (%) (Auto) 76 H 42-75 % Lymphocytes (%) (Auto) 17 12-44 % Monocytes (%) (Auto) 5 0-12 % Eosinophils (%) (Auto) 2 0-10 % Basophils (%) (Auto) 0 0-10 % Neutrophils # (Auto) 7.0 1.8-7.8 10^3/uL Lymphocytes # (Auto) 1.5 1.0-4.0 10^3/uL Monocytes # (Auto) 0.5 0.0-1.0 10^3/uL Eosinophils # (Auto) 0.1 0.0-0.3 10^3/uL Basophils # (Auto) 0.0 0.0-0.1 10^3/uL Immature Granulocyte # (Auto) 0.0 0.0-0.1 10^3/uL Sodium Level 138 135-145 MMOL/L Potassium Level 4.8 3.6-5.0 MMOL/L Chloride Level 96 L 98-107 MMOL/L Carbon Dioxide Level 34 H 21-32 MMOL/L Anion Gap 8 5-14 MMOL/L Blood Urea Nitrogen 15 7-18 MG/DL Creatinine 0.93 0.60-1.30 MG/DL Estimat Glomerular Filtration Rate 67 BUN/Creatinine Ratio 16 Glucose Level 106 H 70-105 MG/DL Calcium Level 9.4 8.5-10.1 MG/DL Corrected Calcium 9.4 8.5-10.1 MG/DL Total Bilirubin 0.3 0.1-1.0 MG/DL Aspartate Amino Transf (AST/SGOT) 15 5-34 U/L Alanine Aminotransferase (ALT/SGPT) 12 0-55 U/L Alkaline Phosphatase 115 40-136 U/L Total Protein 6.8 6.4-8.2 GM/DL Albumin 4.0 3.2-4.5 GM/DL Lactic Acid Level 1.27 0.50-2.00 MMOL/L SARS-CoV-2 RNA (RT-PCR) Not Detected Not Detecte Blood Gas Puncture Site L W Blood Gas Patient Temperature 36.7 Arterial Blood pH 7.27 *L 7.37-7.43 Arterial Blood Partial Pressure CO2 85 *H 35-45 MMHG Arterial Blood Partial Pressure O2 88 79-93 MMHG Arterial Blood HCO3 38 H 23-27 MMOL/L Arterial Blood Total CO2 40.5 *H 21.0-31.0 MMOL/L Arterial Blood Oxygen Saturation 97 94-100 % Arterial Blood Base Excess 10.8 H -2.5-2.5 MMOL/L Simone Test Blood Gas Ventilator Setting Blood Gas Inspired Oxygen 3 L O2 Test 03/05/23 10:30 Range/Units Blood Gas Puncture Site LW Blood Gas Patient Temperature 36.7 Arterial Blood pH 7.24 *L 7.37-7.43 Arterial Blood Partial Pressure CO2 94 *H 35-45 MMHG Arterial Blood Partial Pressure O2 121 H 79-93 MMHG Arterial Blood HCO3 39 H 23-27 MMOL/L Arterial Blood Total CO2 41.9 *H 21.0-31.0 MMOL/L Arterial Blood Oxygen Saturation 99 94-100 % Arterial Blood Base Excess 11.4 H -2.5-2.5 MMOL/L Simone Test Blood Gas Ventilator Setting NO Blood Gas Inspired Oxygen 45% My Orders Orders - HILDASTEPHANY Gordon DO Cbc With Automated Diff (03/05/23 07:39) Comprehensive Metabolic Panel (03/05/23 07:39) Blood Culture (03/05/23 07:39) Chest 1 View, Ap/Pa Only (03/05/23 07:39) Ed Iv/Invasive Line Start (03/05/23 07:39) Vital Signs Adult Sepsis Patie Q15M (03/05/23 07:39) O2 (03/05/23 07:39) Lactic Acid Analyzer (03/05/23 07:39) Covid 19 Inhouse Test (03/05/23 07:39) Methylprednisolone Sod Succ (Solu-Medrol (03/05/23 07:45) Arterial Blood Gas (03/05/23 08:31) Levofloxacin 500 Mg/100 Ml Iv (Levaquin (03/05/23 08:45) Albuterol/Ipra Inhalation Soln (Duoneb I (03/05/23 09:02) Ed Admission (Communication) (03/05/23 09:20) Diazepam Injection (Valium Injection) (03/05/23 10:15) Arterial Blood Draw - Obtain (03/05/23 ) Arterial Blood Gas (03/05/23 10:30) Propofol Drip (Icu) (Diprivan Drip (Icu) (03/05/23 11:15) Fentanyl Drip Pre-Mix (Fentanyl Drip Pre (03/05/23 11:15) Chest 1 View, Ap/Pa Only (03/05/23 11:17) Medications Given in ED Current Medications Medications Dose Ordered Sig/Noreen Route Start Time Stop Time Status Last Admin Dose Admin Albuterol/ Ipratropium 3 ml STK-MED ONCE .ROUTE 03/05/23 09:02 03/05/23 09:04 DC 03/05/23 09:15 3 ML Diazepam 2.5 mg ONCE ONCE IVP 03/05/23 10:15 03/05/23 10:16 DC 03/05/23 10:19 2.5 MG Levofloxacin/ Dextrose 100 ml @ 100 mls/hr ONCE ONCE IV 03/05/23 08:45 03/05/23 09:44 DC 03/05/23 08:55 100 MLS/HR Methylprednisolone Sodium Succinate 125 mg ONCE ONCE IVP 03/05/23 07:45 03/05/23 07:46 DC 03/05/23 08:16 125 MG Vital Signs/I&O 03/05/23 03/05/23 03/05/23 03/05/23 07:28 07:28 07:30 08:28 Temp 36.7 Pulse 82 Resp 20 B/P (MAP) 117/99 (105) Pulse Ox 96 95 89 O2 Delivery Room Air Nasal Cannula Nasal Cannula Nasal Cannula O2 Flow Rate 2.00 2.00 3.00 03/05/23 03/05/23 08:47 09:22 Pulse 76 76 Resp 22 22 Pulse Ox 99 99 O2 Flow Rate 45.00 45.00 Capillary Refill : Critical Care Note Critical Care Total Time (minutes) 90 Departure Communication (Admissions) Patient initially hypoxic, started on nasal cannula and escalated to BiPAP ultimately due to work of breathing as well as continued hypoxia. Chest x-ray s hows probable pneumonia. She is allergic to Keflex so did not give her Rocephin. I gave her IV Levaquin because of this. While she was awaiting a bed placement here on BiPAP we got a second ABG back and her CO2 unfortunately is climbed to 94. She had been on BiPAP for about an hour to an hour and a half at that time. I think we need to escalate her care. I spoke with Dr. Dawson who had excepted admission to the ICU. We opted to go ahead and intubate the patient to help with her CO2. She had been getting intermittently confused and is getting more more somnolent. She did ultimately consent to the procedure after multiple questions were answered to her and her . There were no complications of the procedure and she tolerated it well Impression Primary Impression: Hypoxia Additional Impressions: CAP (community acquired pneumonia) Qualified Codes: J18.9 - Pneumonia, unspecified organism Respiratory failure Qualified Codes: J96.01 - Acute respiratory failure with hypoxia; J96.02 - Acute respiratory failure with hypercapnia Disposition: ADMITTED INPATIENT Condition: Stable Departure-Patient Inst. Referrals: ANIKA DAWSON DO (PCP/Family) Primary Care Physician STEPHANY STEVENS DO March 05, 2023 07:44
[2023-03-05 07:45] LABS: BASOPHILS % (AUTO) 0 % (0-10); EOSINOPHILS # (AUTO) 0.1 10^3/uL (0.0-0.3); EOSINOPHILS % (AUTO) 2 % (0-10); HEMATOCRIT 44 % (35-52); HEMOGLOBIN 14.3 g/dL (11.5-16.0); LYMPHOCYTES # (AUTO) 1.5 10^3/uL (1.0-4.0); LYMPHOCYTES % (AUTO) 17 % (12-44); MEAN CORPUSCULAR HEMOGLOBIN 32 pg (25-34); MEAN CORPUSCULAR HGB CONC 32 g/dL (32-36); MEAN CORPUSCULAR VOLUME 98 fL (80-99); MEAN PLATELET VOLUME 9.7 fL (9.0-12.2); MONOCYTES # (AUTO) 0.5 10^3/uL (0.0-1.0); MONOCYTES % (AUTO) 5 % (0-12); NEUTROPHILS % (AUTO) 76 % (42-75); PLATELET COUNT 230 10^3/uL (130-400); WHITE BLOOD COUNT 9.2 10^3/uL (4.3-11.0)
[2023-03-05] MEDS ORDERED: methylPREDNISolone 125 MG (Solu-MEDROL) VIAL IVP ONE (07:45)
[2023-03-05 08:00] LABS: POTASSIUM 4.8 MMOL/L (3.6-5.0)
[2023-03-05 08:01] LABS: CALCIUM 9.4 MG/DL (8.5-10.1)
[2023-03-05 08:02] LABS: TOTAL PROTEIN 6.8 GM/DL (6.4-8.2)
[2023-03-05 08:04] LABS: BILIRUBIN,TOTAL 0.3 MG/DL (0.1-1.0)
[2023-03-05 08:06] LABS: CREATININE SERUM 0.93 MG/DL (0.60-1.30)
--- NOTE | 2023-03-05 08:13 | Diagnostic Imaging Report ---
EXAMINATION: Chest 1 view HISTORY: dyspnea, hypoxia COMPARISON: None available. FINDINGS: Heart size and pulmonary vasculature are normal. There are mild interstitial opacities within the lower lungs. No pleural effusion or pneumothorax. The osseous structures are intact. IMPRESSION: 1. Mild interstitial opacities in the lower lungs which can be seen with atelectasis, edema, or pneumonia. Dictated by: Dictated on workstation # [id number]
[2023-03-05 08:47] VITALS: BP 106/58
[2023-03-05 08:48] LABS: ABG BASE EXCESS 10.8 MMOL/L (-2.5-2.5); ABG OXYGEN SATURATION 97 % (94-100); ABG PO2 88 MMHG (79-93)
[2023-03-05 08:49] LABS: INSPIRED O2 3 L O2; PATIENT TEMP 36.7
[2023-03-05 08:52] LABS: ABG PCO2 85 MMHG (35-45); ABG PH 7.27 (7.37-7.43); ABG TCO2 40.5 MMOL/L (21.0-31.0)
[2023-03-05] MEDS ORDERED: RT-ALBUTEROL/IPRATROPIUM 3 ML (DUONEB) VIAL ONE (09:02)
--- NOTE | 2023-03-05 09:15 | History & Physical ---
History of Present Illness HPI/Chief Complaint Chief complaint: Shortness of breath HPI: This is a 67-year-old female clinic patient of mine who has a past medical history of severe COPD from prior smoking, severe restless leg syndrome and neuropathy and opioid addiction in the past with chronic pain who presented to the ER with complaints of chest pain. Patient was found to have acute hypercapnic and hypoxic respiratory failure requiring BiPAP with evidence of pneumonia on chest x-ray empirically placed on Levaquin due to allergies to cephalosporin but seem to worsen on BiPAP showed to be retaining more CO2 so she was intubated and placed on propofol and sent to the ICU. I assessed her in the ER before she was intubated. She was showing signs of CO2 narcosis. Apparently she has reunited with her ex- who is at the bedside. Source: patient, family Exam Limitations: clinical condition Date Seen 03/05/23 Time Seen by a Provider: 09:30 Attending Physician Nahomi Peterson DO PCP Admitting Physician: Attending Physician: Referring Physician Date of Admission Home Medications & Allergies Home Medications Reviewed patient Home Medication Reconciliation performed by pharmacy medication reconciliations sound engineering technician and/or nursing. Patients Allergies have been reviewed. Allergies Allergies Coded Allergies cephalexin (Verified Allergy, Severe, HIVES, 09/23/22) hydromorphone (Verified Allergy, Severe, COMA, 03/05/23) PT TOLERATED HYDROCODONE ON 01/25/23 codeine (Verified Allergy, Unknown, PT HAS TAKEN HYDROCODONE IN PAST, 03/05/23) famotidine (Verified Allergy, Unknown, 09/23/22) Past Cqlmrlw-Mctvhe-Bfwovc Hx Past Med/Social Hx: Reviewed Nursing Past Med/Soc Hx, Reviewed and Corrections made Patient Social History Marrital Status: Employed/Student: retired Alcohol Use: Denies Use Smoking Status: Former Smoker 2nd Hand Smoke Exposure: Yes Recent Hopitalizations: No Seasonal Allergies Seasonal Allergies: No Past Medical History Surgeries: Section Respiratory: COPD Cardiac: High Cholesterol Neurological: Neuropathy Family History Heart Disease Review of Systems Constitutional: see HPI Respiratory: dyspnea on exertion Physical Exam Physical Exam Vital Signs Vital Signs - First Documented 03/05/23 03/05/23 07:28 11:42 Temp 36.7 Pulse 82 Resp 20 B/P (MAP) 117/99 (105) Pulse Ox 96 O2 Delivery Room Air O2 Flow Rate 2.00 FiO2 45 Capillary Refill : Less Than 3 Seconds Height, Weight, BMI Height: 5'5.00" Weight: 280lbs. oz. 127.790092mf; 42.00 BMI Method:Stated General Appearance: WD/WN, Chronically ill, Mild Distress Respiratory: No Accessory Muscle Use, No Respiratory Distress, Accessory Muscle Use, Decreased Breath Sounds Cardiovascular: Regular Rate, Rhythm, No Edema, No Gallop, No JVD, No Murmur, Normal Peripheral Pulses Neurologic/Psychiatric: Alert Results Results/Procedures Labs Laboratory Tests 03/05/23 07:30 Patient resulted labs reviewed. Assessment/Plan Admission Diagnosis Assessment: Acute hypoxic hypercapnic respiratory failure Acute exacerbation of COPD Pneumonia on chest x-ray Former smoker Severe restless leg syndrome Neuropathy Depression History of opioid addiction Plan: Supportive care Intubation IV antibiotics Lovenox for DVT prophylaxis IV steroids Echo Monitor closely Admission Status: Inpatient Order (span 2 midnights) Reason for Inpatient Admission: resp failure NAHOMI PETERSON DO March 05, 2023 09:15
[2023-03-05 09:22] VITALS: BP 106/58
[2023-03-05 10:42] LABS: ABG BASE EXCESS 11.4 MMOL/L (-2.5-2.5); ABG OXYGEN SATURATION 99 % (94-100); ABG PO2 121 MMHG (79-93)
[2023-03-05 10:46] LABS: INSPIRED O2 45%; PATIENT TEMP 36.7; VENTILATOR NO
[2023-03-05 10:47] LABS: ABG PCO2 94 MMHG (35-45); ABG PH 7.24 (7.37-7.43); ABG TCO2 41.9 MMOL/L (21.0-31.0)
[2023-03-05] MEDS: PROPOFOL DRIP (ICU) 100 ML IV SCH ×5 (11:33→22:45)
--- NOTE | 2023-03-05 11:47 | Diagnostic Imaging Report ---
INDICATION: Intubation. Frontal chest obtained at 11:25 a.m. is compared to same day at 8:12 a.m. FINDINGS: There is a new ET tube in place with tip over the lower trachea about 1.5 cm above the lana. There is cardiomegaly. There is worsening central vascular congestion and development of interstitial edema compared to the prior study. There is no pneumothorax or gross pleural fluid. IMPRESSION: New ET tube tip overlying lower trachea as above. There is cardiomegaly. There is worsening vascular congestion with development of interstitial edema compared to the previous study. Dictated by: Dictated on workstation # [id number]
[2023-03-05 12:08] VITALS: BP 164/81
[2023-03-05] MEDS ORDERED: MILK OF MAGNESIA 400 MG/5 ML 30 ML UDC PO PRN (12:15)
[2023-03-05] MEDS ORDERED: diphenhydrAMINE 25 MG TAB (BENADRYL) PO PRN (12:15)
[2023-03-05] MEDS ORDERED: BISACODYL 10 MG SUPP (DULCOLAX) PR PRN (12:15)
[2023-03-05] MEDS ORDERED: LORazepam/NS DRIP 100 ML IV SCH (12:15)
[2023-03-05] MEDS ORDERED: LORazepam INJ 2 MG/ML (ATIVAN) VIAL IVP PRN (12:15)
[2023-03-05] MEDS ORDERED: NS IV 500 ML 500 ML IV PRN (12:15)
[2023-03-05] MEDS ORDERED: LORazepam 0.5 MG (ATIVAN) TABLET PO PRN (12:15)
[2023-03-05] MEDS ORDERED: MELATONIN 3 MG TABLET PO PRN (12:15)
[2023-03-05] MEDS ORDERED: ONDANSETRON 4 MG/2 ML (SDV) Z0FRAN IV PRN (12:15)
[2023-03-05] MEDS ORDERED: PROPOFOL DRIP (ICU) 100 ML IV SCH (12:15)
[2023-03-05] MEDS ORDERED: fentaNYL DRIP PRE-MIX 250 ML IV SCH (12:15)
[2023-03-05] MEDS ORDERED: diphenhydrAMINE 50 MG/ML INJ (BENADRYL) IVP PRN (12:15)
[2023-03-05] MEDS ORDERED: ONDANSETRON 4 MG (ZOFRAN) ORAL DISSOLVE TAB PO PRN (12:15)
[2023-03-05] MEDS ORDERED: ACETAMINOPHEN 325 MG TABLET PO PRN (12:15)
[2023-03-05] MEDS ORDERED: CALCIUM CARBONATE 500 MG (TUMS) TAB.CHEW PO PRN (12:15)
[2023-03-05] MEDS ORDERED: polyethylene glycoL POWDER 17 GM (MIRALAX) PACK PO PRN (12:15)
[2023-03-05] MEDS ORDERED: ANTACID SUSP 30 ML UDC (MYLANTA) PO PRN (12:15)
[2023-03-05] MEDS ORDERED: LACTULOSE SYRUP 10GM/15ML (ENULOSE) 30ML UDC PO PRN (12:15)
[2023-03-05] MEDS ORDERED: DexMEDEtomidine 250 ML DRIP 250 ML IV ONE (12:22)
[2023-03-05] MEDS: DexMEDEtomidine 250 ML DRIP 250 ML IV SCH (12:24)
[2023-03-05] MEDS: fentaNYL DRIP PRE-MIX 250 ML IV SCH (12:29)
--- NOTE | 2023-03-05 12:32 | Diagnostic Imaging Report ---
EXAMINATION: CHEST 1 VIEW, AP/PA ONLY. INDICATION: Intubation. COMPARISON: Earlier this same day at 11:25 AM. FINDINGS: The ET tube has been retracted and now has its tip 4.5 cm above the lana. An enteric tube has its tip near the GE junction. Stable perihilar opacities, greater on the left. No pleural effusion or pneumothorax. IMPRESSION: 1. Well-positioned ET tube. 2. Enteric tube likely has its tip in the distal esophagus. 3. Stable perihilar opacities that may be due to edema or atelectasis. Dictated by: Dictated on workstation # [id number]
[2023-03-05] MEDS: ENOXAPARIN 40 MG/0.4 ML (LOVENOX) SYR SC SCH (12:37)
[2023-03-05 12:38] LABS: ABG BASE EXCESS 9.8 MMOL/L (-2.5-2.5); ABG OXYGEN SATURATION 92 % (94-100); ABG PCO2 46 MMHG (35-45); ABG PH 7.48 (7.37-7.43); ABG PO2 50 MMHG (79-93); ABG TCO2 35.5 MMOL/L (21.0-31.0)
[2023-03-05 12:39] LABS: ALLENS TEST YES-POS; VENTILATOR YES
--- NOTE | 2023-03-05 13:56 | Tele-ICU Consult ---
History of Present Illness History of Present Illness Date Seen by Provider: March 05, 2023 Time Seen by Provider: 14:49 Date of Admission 03/05/23 History of Present Illness (Tele-ICU Physician , critical care consultation report ) Service provided via interactive audio and video telecommunications E-CARE system to a patient admitted to ICU bed in [facility]. Patient is seen today due to persistent need of ICU care Available chart/ vitals / labs / Images reviewed Video assessment done using teleICU camera, rest of exam as per RN She is a 67-year-old female with past medical history of severe chronic obstructive pulmonary disease and chronic low back pain presented to the emergency room with a complaint of shortness of breath and low back pain. Her shortness of breath is getting worse every day before the admission. She also has a increase in the cough and wheezing and some sputum production. She used her daughter nebulizers at home but did not help eventually came to the emergency room. She denied any chest pain fever chills or rigors. Apparently she takes her tramadol regularly for her back pain. She has a questionable history of opioid abuse disorder. She denies any urinary symptoms. In the emergency room she is found to be in moderate distress with hypoxia hence she was placed on BiPAP ventilation. Her blood gases revealed acute and chronic hypercarbic respiratory failure with CO2 retention. But a repeat blood gas showed worsening of her CO2 retention and she is intubated and put on mechanical ventilation. Subsequently admitted to the intensive care unit where I have evaluated via video and discussed with the AVIATION TECHNICAL SYSTEMS SPECIALIST. Impression 1. COPD exacerbation with acute and chronic hypercarbic and hypoxic respiratory failure 2. Possible underlying pneumonia 3. Chronic low back pain. 4. History of hypertension 5. GERD Recommendations 1. We will increase the FiO2 and decrease respiratory rate as she is overc ompensated with hypoxia 2. We will continue IV antibiotic as per primary care physician 3. Hydrate patient with normal saline as he appears to be volume contracted 4. DVT prophylaxis 5. IV steroids and bronchodilator therapy 6. IV Pepcid. Coordination of care with the primary care physician and bedside consultants I am remotely monitoring this patient from Tele icu station in [place]. I am unable to do the bedside exam, and history/physical and pertinent information is taken from other notes in the computer and bedside staff. Certain portions of this document may have been dictated utilizing voice recognition technology such as [id number]. Inherent to this technology, typographical and grammatical errors may exist. As much as I am diligent to identify and correct to these mistakes, some errors may remain in the document. Critical care time devoted to this patient today is approximately is 45 minutes-- Allergies and Home Medications Allergies Coded Allergies: cephalexin (Verified Allergy, Severe, HIVES, 09/23/22) hydromorphone (Verified Allergy, Severe, COMA, 03/05/23) PT TOLERATED HYDROCODONE ON 01/25/23 codeine (Verified Allergy, Unknown, PT HAS TAKEN HYDROCODONE IN PAST, 03/05/23) famotidine (Verified Allergy, Unknown, 09/23/22) Home Medications Albuterol Sulfate 2.5 Mg/3 Ml (0.083 %) Vial.neb, 2.5 MG INH Q6H PRN for WHEEZING Prescribed by: FAY YIN on 09/23/22 1408 Amoxicillin 875 Mg Tablet, 875 MG PO BID Prescribed by: FAY YIN on 09/23/22 1408 Azithromycin 250 Mg Tablet, 250 MG PO DAILY Prescribed by: FAY YIN on 09/23/22 1408 Hydrocodone/Acetaminophen 5 Mg-325 Mg Tablet, 1 TAB PO Q4H PRN for PAIN-MODERATE (5-7) Prescribed by: LILY CONTRERAS on 01/25/23 1603 Hydrocodone/Chlorphen P-Stirex 10 Mg-8 Mg/5 Ml Sara.er.12h, 5 ML PO Q6H PRN for cough/congestion Prescribed by: FAY YIN on 09/23/22 1412 Methocarbamol 750 Mg Tablet, 750 MG PO Q6-8HR Prescribed by: LILY CONTRERAS on 01/25/23 1603 Prednisone 50 Mg Tab, 50 MG PO DAILY Prescribed by: FAY IYN on 09/23/22 1411 Past Medical/Social/Family Hx Patient Social History Tobacco Use?: Yes Tobacco type used: Cigarettes Smoking Status: Current Everyday Smoker Use of E-Cig and/or Vaping dev: No Substance use?: No Alcohol Use?: No Pt stated abuse/neglect: No Immunizations Up To Date Influenza Vaccine Up-to-Date: Yes; Up-to-Date First/Initial COVID19 Vaccinat: 2020 Second COVID19 Vaccination Lalit: 2020 Current Status status: No status: No Advance Directives: No Communicates: Verbally Primary Language: Armenian Preferred Spoken Language: Armenian Is interpretation needed?: No Sensory deficits: Vision impairment Implanted or Applied Medical D: None Review of Systems Constitutional: see HPI, weakness, other (cough and shortness of breath) Focused Exam Lactate Level 03/05/23 07:45: Lactic Acid Level 1.27 Height, Weight, BMI Height: 5'5.00" Weight: 280lbs. oz. 127.155943qc; 42.92 BMI Method:Stated Exam Exam Patient acknowledged, consented, and participated in this virtual visit which was conducted using real time audio/video Vital Signs Date Time Temp Pulse Resp B/P (MAP) Pulse Ox O2 Delivery O2 Flow Rate FiO2 03/05/23 13:40 66 131/65 03/05/23 13:33 67 131/65 03/05/23 12:55 69 147/70 03/05/23 12:45 70 147/70 03/05/23 12:30 71 144/70 03/05/23 12:24 72 151/73 03/05/23 12:20 35.8 03/05/23 12:16 73 03/05/23 12:15 72 20 151/73 (99) 96 Mechanical Ventilator 45.00 03/05/23 12:15 71 151/73 03/05/23 12:08 72 22 96 45 03/05/23 12:05 80 164/81 03/05/23 12:00 82 20 164/81 (108) 90 Mechanical Ventilator 45.00 03/05/23 12:00 81 164/81 03/05/23 11:50 92 104/93 03/05/23 11:45 85 20 170/96 (120) 99 Mechanical Ventilator 45.00 03/05/23 11:35 36.0 91 20 172/89 100 Mechanical Ventilator 45.00 03/05/23 11:33 84 172/89 03/05/23 09:22 76 22 99 45.00 03/05/23 08:47 76 22 99 45.00 03/05/23 08:28 89 Nasal Cannula 3.00 03/05/23 07:30 95 Nasal Cannula 2.00 03/05/23 07:28 36.7 82 20 117/99 (105) 96 Nasal Cannula 2.00 03/05/23 07:28 Room Air Height & Weight Height: 5'5.00" Weight: 280lbs. oz. 127.899913ms; 42.92 BMI Method:Stated General Appearance: Chronically ill Capillary Refill: Less Than 3 Seconds Gastrointestinal: normal bowel sounds, non tender, soft, no organomegaly Results Lab Laboratory Tests 03/05/23 07:30 Assessment/Plan Assessment/Plan as above Critical Care: Ventilator Management Time spent with patient (mins): 45 MINGO MERCADO MD March 05, 2023 13:56
[2023-03-05] MEDS: RT-ALBUTEROL/IPRATROPIUM 3 ML (DUONEB) VIAL INH SCH ×3 (14:25→21:46)
[2023-03-05 14:31] VITALS: BP 156/72
[2023-03-05] MEDS ORDERED: ETOMIDATE IV SOLN 20 MG/10 ML VIAL IV ONE (14:34)
[2023-03-05] MEDS ORDERED: ROCURONIUM 50 MG/5 ML (ZEMURON) VIAL IV ONE (14:34)
[2023-03-05] MEDS: NS IV 1000 ML 1,000 ML IV SCH (14:46)
[2023-03-05] MEDS ORDERED: LORA10TA7 PO (15:46)
[2023-03-05] MEDS ORDERED: FURO20TA4 PO (15:46)
[2023-03-05] MEDS ORDERED: LISI10TA25 PO (15:46)
[2023-03-05] MEDS ORDERED: METO50TA7 PO (15:46)
[2023-03-05] MEDS ORDERED: POTA10TA PO (15:46)
[2023-03-05] MEDS ORDERED: MELO7.5T46 PO (15:46)
[2023-03-05] MEDS ORDERED: PANT20TA18 PO (15:46)
[2023-03-05] MEDS ORDERED: FLUT1BLS15 INH (15:46)
[2023-03-05] MEDS ORDERED: ATOR20TA66 PO (15:46)
[2023-03-05] MEDS ORDERED: TRAZ150T72 PO (15:46)
[2023-03-05] MEDS ORDERED: VENL150C98 PO (15:46)
[2023-03-05] MEDS ORDERED: ROPI1TAB PO (15:46)
[2023-03-05] MEDS ORDERED: CARI350T27 PO (15:46)
[2023-03-05] MEDS ORDERED: MIRT-69 PO (15:46)
[2023-03-05] MEDS ORDERED: VITA-189 PO (15:46)
[2023-03-05] MEDS ORDERED: TRAM50TA3 PO (15:46)
[2023-03-05] MEDS ORDERED: inSUlin ASPART (NovoLOG) 1 UNIT/0.01 ML (CHARGE PER UNIT) SC SCH (16:00)
[2023-03-05 16:26] LABS: ABG OXYGEN SATURATION 97 % (94-100); ABG PCO2 43 MMHG (35-45); ABG PH 7.49 (7.37-7.43); ABG PO2 68 MMHG (79-93); ABG TCO2 34.5 MMOL/L (21.0-31.0)
[2023-03-05 16:27] LABS: ALLENS TEST YES-POS; INSPIRED O2 70; PATIENT TEMP 35.8; VENTILATOR YES
[2023-03-05] MEDS: inSUlin ASPART (NovoLOG) 1 UNIT/0.01 ML (CHARGE PER UNIT) SC SCH (18:17)
[2023-03-05 18:49] VITALS: BP_SYST 116; BP_SYST 99; BP_DIAS 67; BP_DIAS 89
[2023-03-05] MEDS: DOCUSATE SODIUM 100 MG (COLACE) CAP PO SCH (20:37)
[2023-03-05] MEDS: SENNOSIDES 8.6 MG (SENOKOT) TAB PO SCH (20:37)
[2023-03-05 21:46] VITALS: BP 113/59
[2023-03-06] MEDS: ENOXAPARIN 40 MG/0.4 ML (LOVENOX) SYR SC SCH ×2 (00:30→12:06)
[2023-03-06] MEDS: NS IV 1000 ML 1,000 ML IV SCH ×7 (01:45→20:38)
[2023-03-06] MEDS: DexMEDEtomidine 250 ML DRIP 250 ML IV SCH ×2 (02:16→15:51)
[2023-03-06] MEDS: PROPOFOL DRIP (ICU) 100 ML IV SCH ×5 (02:45→21:07)
[2023-03-06] MEDS: inSUlin ASPART (NovoLOG) 1 UNIT/0.01 ML (CHARGE PER UNIT) SC SCH ×4 (06:00→17:23)
[2023-03-06] MEDS: MAGNESIUM 1 GM/100 ML IVPB 100 ML IV SCH ×6 (06:41→11:56)
[2023-03-06] MEDS: POTASSIUM CL 10MEQ/50ML IVPB 50 ML IV SCH ×4 (06:41→11:56)
[2023-03-06 06:55] LABS: BASOPHILS % (AUTO) 0 % (0-10); EOSINOPHILS % (AUTO) 0 % (0-10); HEMATOCRIT 40 % (35-52); HEMOGLOBIN 13.1 g/dL (11.5-16.0); LYMPHOCYTES # (AUTO) 0.6 10^3/uL (1.0-4.0); LYMPHOCYTES % (AUTO) 11 % (12-44); MEAN CORPUSCULAR HEMOGLOBIN 31 pg (25-34); MEAN CORPUSCULAR HGB CONC 33 g/dL (32-36); MEAN CORPUSCULAR VOLUME 95 fL (80-99); MONOCYTES # (AUTO) 0.1 10^3/uL (0.0-1.0); MONOCYTES % (AUTO) 2 % (0-12); NEUTROPHILS # (AUTO) 4.6 10^3/uL (1.8-7.8); NEUTROPHILS % (AUTO) 86 % (42-75); PLATELET COUNT 212 10^3/uL (130-400); WHITE BLOOD COUNT 5.3 10^3/uL (4.3-11.0)
[2023-03-06 07:13] VITALS: BP 105/58
[2023-03-06 07:13] LABS: ALBUMIN 3.4 GM/DL (3.2-4.5); BILIRUBIN,TOTAL 0.2 MG/DL (0.1-1.0); CALCIUM 8.6 MG/DL (8.5-10.1); CREATININE SERUM 0.82 MG/DL (0.60-1.30); MAGNESIUM 1.7 MG/DL (1.6-2.4); PHOSPHORUS 2.6 MG/DL (2.3-4.7); POTASSIUM 3.7 MMOL/L (3.6-5.0); TOTAL PROTEIN 5.7 GM/DL (6.4-8.2)
[2023-03-06] MEDS: RT-ALBUTEROL/IPRATROPIUM 3 ML (DUONEB) VIAL INH SCH ×4 (07:13→22:00)
[2023-03-06] MEDS: KCL 20 MEQ TAB (K-DUR) PO SCH (07:53)
--- NOTE | 2023-03-06 08:22 | Progress Note ---
Subjective Date Seen by a Provider: March 06, 2023 Time Seen by a Provider: 11:00 Subjective/Events-last exam Patient doing better Maintained on ventilator at bedside Trying to communicate with clipboard and pen Check meds and labs Focused Exam Lactate Level 03/05/23 07:45: Lactic Acid Level 1.27 Objective Exam Last Set of Vital Signs Vital Signs Date Time Temp Pulse Resp B/P (MAP) Pulse Ox O2 Delivery O2 Flow Rate FiO2 03/06/23 08:14 98 71/44 03/06/23 08:13 40 03/06/23 08:02 36.3 03/06/23 07:13 16 100 03/06/23 04:00 Mechanical Ventilator 03/05/23 22:00 45.00 Capillary Refill : Less Than 3 Seconds I&O Intake and Output 03/06/23 00:00 Intake Total 530 ml Output Total 1075 ml Balance -545 ml Intake Oral 0 ml IV Total 500 ml Other 30 ml Output Urine Total 925 ml Gastric Drainage Total 150 ml Daily Weight Change No General: Mild Distress, Other (On ventilator) Lungs: Other (Crackles and wheezes) Psych/Mental Status: Mental Status NL Results Lab Laboratory Tests 03/05/23 08:40: Blood Gas Puncture Site L W, Blood Gas Patient Temperature 36.7, Arterial Blood pH 7.27*L, Arterial Blood Partial Pressure CO2 85*H, Arterial Blood Partial Pressure O2 88, Arterial Blood HCO3 38H, Arterial Blood Total CO2 40.5*H, Arterial Blood Oxygen Saturation 97, Arterial Blood Base Excess 10.8H, Simone Test , Blood Gas Ventilator Setting , Blood Gas Inspired Oxygen 3 L O2 03/05/23 10:30: Blood Gas Puncture Site LW, Blood Gas Patient Temperature 36.7, Arterial Blood pH 7.24*L, Arterial Blood Partial Pressure CO2 94*H, Arterial Blood Partial Pressure O2 121H, Arterial Blood HCO3 39H, Arterial Blood Total CO2 41.9*H, Arterial Blood Oxygen Saturation 99, Arterial Blood Base Excess 11.4H, Simone Test , Blood Gas Ventilator Setting NO, Blood Gas Inspired Oxygen 45% 03/05/23 11:52: Blood Gas Puncture Site R radial, Blood Gas Patient Temperature 36.0, Arterial Blood pH 7.48H, Arterial Blood Partial Pressure CO2 46H, Arterial Blood Partial Pressure O2 50L, Arterial Blood HCO3 34H, Arterial Blood Total CO2 35.5H, Arterial Blood Oxygen Saturation 92L, Arterial Blood Base Excess 9.8H, Simone Test YES-POS, Blood Gas Ventilator Setting YES, Blood Gas Inspired Oxygen 03/05/23 16:20: Blood Gas Puncture Site LEFT RADIAL, Blood Gas Patient Temperature 35.8, Arterial Blood pH 7.49H, Arterial Blood Partial Pressure CO2 43, Arterial Blood Partial Pressure O2 68L, Arterial Blood HCO3 33H, Arterial Blood Total CO2 34.5H , Arterial Blood Oxygen Saturation 97, Arterial Blood Base Excess 9.0H, Simone Test YES-POS, Blood Gas Ventilator Setting YES, Blood Gas Inspired Oxygen 70 03/05/23 17:41: Glucometer 173H 03/05/23 23:24: Glucometer 194H 03/06/23 04:47: White Blood Count 5.3, Red Blood Count 4.20, Hemoglobin 13.1, Hematocrit 40, Mean Corpuscular Volume 95, Mean Corpuscular Hemoglobin 31, Mean Corpuscular Hemoglobin Concent 33, Red Cell Distribution Width 14.5, Platelet Count 212, Mean Platelet Volume 10.0, Immature Granulocyte % (Auto) 1, Neutrophils (%) (Auto) 86H, Lymphocytes (%) (Auto) 11L, Monocytes (%) (Auto) 2, Eosinophils (%) (Auto) 0, Basophils (%) (Auto) 0, Neutrophils # (Auto) 4.6, Lymphocytes # (Auto) 0.6L, Monocytes # (Auto) 0.1, Eosinophils # (Auto) 0.0, Basophils # (Auto) 0.0, Immature Granulocyte # (Auto) 0.0, Sodium Level 136, Potassium Level 3.7, Chloride Level 99, Carbon Dioxide Level 26, Anion Gap 11, Blood Urea Nitrogen 13, Creatinine 0.82, Estimat Glomerular Filtration Rate 78, BUN/Creatinine Ratio 16, Glucose Level 190H, Calcium Level 8.6, Corrected Calcium 9.1, Phosphorus Level 2.6, Magnesium Level 1.7, Total Bilirubin 0.2, Aspartate Amino Transf (AST/SGOT) 15, Alanine Aminotransferase (ALT/SGPT) 13, Alkaline Phosphatase 90, Total Protein 5.7L, Albumin 3.4 03/06/23 05:45: Glucometer 208H Assessment/Plan Assessment/Plan Assess & Plan/Chief Complaint Assessment: Acute hypoxic hypercapnic respiratory failure Acute exacerbation of COPD Pneumonia on chest x-ray Former smoker Severe restless leg syndrome Neuropathy Depression History of opioid addiction Plan: Supportive care Intubation IV antibiotics Lovenox for DVT prophylaxis IV steroids Echo Monitor closely ANIKA DAWSON DO March 06, 2023 08:22
--- NOTE | 2023-03-06 08:27 | Diagnostic Imaging Report ---
INDICATION: Respiratory distress. Frontal chest obtained at 4:50 a.m. and compared with yesterday. ET tube and NG tube are unchanged. The heart is mildly enlarged. There is improved aeration of the left lung base compared to the prior study. There is no new infiltrate or pneumothorax or pleural fluid. IMPRESSION: Stable life support lines with improved aeration of the left lung base compared to the prior study. There is no new abnormality. Dictated by: Dictated on workstation # [id number]
[2023-03-06 08:32] LABS: ABG BASE EXCESS 5.6 MMOL/L (-2.5-2.5); ABG OXYGEN SATURATION 97 % (94-100); ABG PCO2 52 MMHG (35-45); ABG PH 7.39 (7.37-7.43); ABG PO2 77 MMHG (79-93); ABG TCO2 32.1 MMOL/L (21.0-31.0)
[2023-03-06 08:33] LABS: ALLENS TEST YES-POS; INSPIRED O2 40%; PATIENT TEMP 36.6; VENTILATOR NO
--- NOTE | 2023-03-06 09:06 | Tele-ICU Progress Note ---
Subjective Date Seen by a Provider: March 06, 2023 Time Seen by a Provider: 09:05 Subjective/Events-last exam (Tele-ICU Physician , Progress Note ) Service provided via interactive audio and video telecommunLiveHealthier E-CARE system to a patient admitted to ICU bed in [facility]. Patient is seen today due to persistent need of ICU care Available chart/ vitals / labs / Images reviewed Video assessment done using teleICU camera, rest of exam as per RN Discussed with RN Events overnight : Afebrile hemodynamically stable Respiratory - 40 % . +10 I/O =+ Drips: 100 ns Pressors- no VENT SETTINGS and ABG reviewed NOT CANDIDATE for SBTreviewed possible contraindications including Ca rdiovascular Stability /Sedation Score / FI02/PEEP / ABG / CXR/ secretions Sedation, discussed with RN, RASS on propofol 20, precedex 0.6 Hospital course: (03/05) 67 y/o F - Pneumonia - COPD - Failed BiPAP - Intubated. 03/06 40% PEEP10, hypotensiove- NS boluses ECHO pending , propofol 20, precedex 0.6 A/P Acute hypercarbic respiratory failure on chronic resp failure = (03/05) - Failed BiPAP - Intubated. -03/06 40% PEEP10 - minimal secretions Hypotension 03/06 - not acidotoc , no bleedoing - will r/i autoCPAP - NS boluses - already on steroids AECOPD - decadron IV - mebs PNA - levofloxacin 03/06 Hyperglycemia - ? decadron chronic hypercarbic and hypoxic respiratory failure ( used her daughter nebulizers at home - to adress latter Chronic low back pain. - resume tramadol , prn tylenol ( questionable history of opioid abuse disorder - minimize opioid exposure now Nutrition - starting TF Lines : per , (Central Line Necessity Reviewed) Barrett: + OG: Nutrition: to start TF 03/06 Analgesia: Anxiety/ delirium VTE Prophylaxis: ppi Stress Ulcer Prophylaxis: 40 Plans in collaboration with bedside consultants and IM MDs. Discussed with RN to reach out if any questions or concerns Case and care daily discussed on multidisciplinary rounds ( RN, PharmD, Instructor Extension Work , Respiratory Therapy, track service worker ) A total of 31 minutes of critical care time was devoted to this patient today, required to treat and/or prevent further deterioration of critical care condition ( as above ) . I am remotely monitoring this patient from another state. I am unable to do the bedside exam, and history/physical and pertinent information is taken from other notes in the computer and bedside staff. Sepsis Event Evaluation Height, Weight, BMI Height: 5'5.00" Weight: 280lbs. oz. [id number]; 45.67 BMI Method:Stated Focused Exam Lactate Level 03/05/23 07:45: Lactic Acid Level 1.27 Exam Exam Patient acknowledged, consented, and participated in this virtual visit which was conducted using real time audio/video Vital Signs Date Time Temp Pulse Resp B/P (MAP) Pulse Ox O2 Delivery O2 Flow Rate FiO2 03/06/23 08:14 98 71/44 03/06/23 08:13 40 03/06/23 08:09 96 78/43 03/06/23 08:02 36.3 03/06/23 07:32 89 77/47 03/06/23 07:13 75 16 100 40 03/06/23 07:07 71 03/06/23 06:47 73 105/60 03/06/23 06:45 70 105/60 03/06/23 06:16 75 114/65 03/06/23 04:00 96 Mechanical Ventilator 40 03/06/23 03:50 40 03/06/23 02:45 85 99/51 03/06/23 02:45 85 90/51 03/06/23 02:16 64 103/59 03/06/23 00:00 100 Mechanical Ventilator 45 03/05/23 23:50 45 03/05/23 23:32 75 105/58 03/05/23 22:45 82 118/62 03/05/23 22:00 69 29 117/62 (80) 98 Mechanical Ventilator 45.00 03/05/23 21:46 64 14 98 40 03/05/23 21:00 64 15 123/70 (87) 100 Mechanical Ventilator 45.00 03/05/23 20:29 63 114/65 03/05/23 20:00 67 13 116/65 (82) 99 Mechanical Ventilator 45.00 03/05/23 19:50 45 03/05/23 19:35 97 Mechanical Ventilator 45 03/05/23 19:32 67 105/55 03/05/23 19:00 70 03/05/23 19:00 36.2 68 14 96/52 (67) 97 Mechanical Ventilator 45.00 03/05/23 18:49 65 14 97 45 03/05/23 18:30 Mechanical Ventilator 50.00 03/05/23 18:00 66 14 122/59 (80) 100 Mechanical Ventilator 70.00 03/05/23 17:44 67 147/67 03/05/23 17:00 67 18 123/57 (79) 100 Mechanical Ventilator 70.00 03/05/23 16:56 35.8 03/05/23 16:55 100 Mechanical Ventilator 70 03/05/23 16:29 67 147/67 03/05/23 16:28 67 147/67 03/05/23 16:00 67 18 147/67 (93) 100 Mechanical Ventilator 70.00 03/05/23 16:00 36.4 03/05/23 15:40 70 156/72 03/05/23 15:00 77 42 133/78 (96) 93 Mechanical Ventilator 70.00 03/05/23 14:31 70 18 100 70 03/05/23 14:30 Mechanical Ventilator 70.00 03/05/23 14:00 66 25 143/68 (93) 98 Mechanical Ventilator 45.00 03/05/23 13:40 66 131/65 03/05/23 13:33 67 131/65 03/05/23 13:00 71 25 134/68 (90) 97 Mechanical Ventilator 45.00 03/05/23 12:55 69 147/70 03/05/23 12:45 70 147/70 03/05/23 12:30 71 144/70 03/05/23 12:30 72 20 144/70 (94) 96 Mechanical Ventilator 45.00 03/05/23 12:24 72 151/73 03/05/23 12:20 35.8 03/05/23 12:16 73 03/05/23 12:15 72 20 151/73 (99) 96 Mechanical Ventilator 45.00 03/05/23 12:15 71 151/73 03/05/23 12:08 72 22 96 45 03/05/23 12:05 80 164/81 03/05/23 12:00 82 20 164/81 (108) 90 Mechanical Ventilator 45.00 03/05/23 12:00 81 164/81 03/05/23 11:50 92 104/93 03/05/23 11:45 85 20 170/96 (120) 99 Mechanical Ventilator 45.00 03/05/23 11:42 96 Mechanical Ventilator 45 03/05/23 11:35 36.0 91 20 172/89 100 Mechanical Ventilator 45.00 03/05/23 11:33 84 172/89 03/05/23 09:22 76 22 99 45.00 I & O 03/06/23 06:59 Intake Total 1880 ml Output Total 1400 ml Balance 480 ml Height & Weight Height: 5'5.00" Weight: 280lbs. oz. [id number]; 45.67 BMI Method:Stated General Appearance: WD/WN, Chronically ill, Mild Distress Respiratory: No Accessory Muscle Use, No Respiratory Distress, Accessory Muscle Use, Decreased Breath Sounds Cardiovascular: Regular Rate, Rhythm, No Edema, No Gallop, No JVD, No Murmur, Normal Peripheral Pulses Capillary Refill: Less Than 3 Seconds Gastrointestinal: normal bowel sounds, non tender, soft, no organomegaly Neurologic/Psychiatric: Alert Results Lab Laboratory Tests 03/05/23 07:30 03/06/23 04:47 Assessment/Plan Assessment/Plan 1 BERNICE MEDINA MD March 06, 2023 09:06
[2023-03-06] MEDS: SENNOSIDES 8.6 MG (SENOKOT) TAB PO SCH ×2 (09:19→20:38)
[2023-03-06] MEDS: PANTOPRAZOLE 40 MG (PROTONIX) VIAL IV SCH (09:19)
[2023-03-06] MEDS: DOCUSATE SODIUM 100 MG (COLACE) CAP PO SCH ×2 (09:30→20:38)
[2023-03-06 09:54] VITALS: BP 83/46
[2023-03-06] MEDS: fentaNYL DRIP PRE-MIX 250 ML IV SCH (10:49)
[2023-03-06] MEDS ORDERED: ACETAMINOPHEN 500 MG TAB (TYLENOL) PO PRN (11:15)
[2023-03-06] MEDS ORDERED: LORazepam INJ 2 MG/ML (ATIVAN) VIAL IVP ONE (11:45)
[2023-03-06 13:57] VITALS: BP 93/49
[2023-03-06] MEDS ORDERED: NS IV 500 ML 500 ML IV ONE ×2 (15:30→15:45)
[2023-03-06 17:39] LABS: ABG BASE EXCESS 2.8 MMOL/L (-2.5-2.5); ABG OXYGEN SATURATION 93 % (94-100); ABG PCO2 47 MMHG (35-45); ABG PH 7.38 (7.37-7.43); ABG PO2 67 MMHG (79-93); ABG TCO2 28.8 MMOL/L (21.0-31.0)
[2023-03-06 17:40] LABS: ALLENS TEST YES-POS; INSPIRED O2 30; PATIENT TEMP 37.2; VENTILATOR YES
[2023-03-06] MEDS: CARISOPRODOL 350 MG (SOMA) TAB PO PRN (19:49)
[2023-03-06] MEDS ORDERED: rOPINIRole 1 MG (REQUIP) TABLET PO ONE (21:30)
[2023-03-07] MEDS: ENOXAPARIN 40 MG/0.4 ML (LOVENOX) SYR SC SCH ×2 (02:09→12:47)
[2023-03-07] MEDS: inSUlin ASPART (NovoLOG) 1 UNIT/0.01 ML (CHARGE PER UNIT) SC SCH ×4 (02:17→17:00)
[2023-03-07] MEDS: RT-ALBUTEROL/IPRATROPIUM 3 ML (DUONEB) VIAL INH SCH ×6 (02:34→22:06)
--- NOTE | 2023-03-07 04:21 | Progress Note ---
Subjective Date Seen by a Provider: March 07, 2023 Time Seen by a Provider: 07:00 Subjective/Events-last exam Patient doing well Patient was extubated without difficulties yesterday Lungs are still coarse No pain is reported High risk for opioid dependency Precedex will be discontinued Review of Systems General: Fatigue, Malaise Focused Exam Lactate Level 03/05/23 07:45: Lactic Acid Level 1.27 Objective Exam Last Set of Vital Signs Vital Signs Date Time Temp Pulse Resp B/P (MAP) Pulse Ox O2 Delivery O2 Flow Rate FiO2 03/07/23 04:00 92 144/71 (95) 97 High Flow N/C 10.00 03/07/23 01:00 25 03/06/23 19:20 37.1 03/06/23 16:23 30 Capillary Refill : Less Than 3 Seconds I&O Intake and Output 03/07/23 00:00 Intake Total 6240 ml Output Total 2240 ml Balance 4000 ml Intake Oral 250 ml IV Total 5950 ml Other 40 ml Output Urine Total 2240 ml General: Alert, Oriented X3, Cooperative, No Acute Distress Lungs: Other (coarse) Heart: Regular Rate Psych/Mental Status: Mental Status NL Results Lab Laboratory Tests 03/06/23 04:47: White Blood Count 5.3, Red Blood Count 4.20, Hemoglobin 13.1, Hematocrit 40, Mean Corpuscular Volume 95, Mean Corpuscular Hemoglobin 31, Mean Corpuscular Hemoglobin Concent 33, Red Cell Distribution Width 14.5, Platelet Count 212, Mean Platelet Volume 10.0, Immature Granulocyte % (Auto) 1, Neutrophils (%) (Auto) 86H, Lymphocytes (%) (Auto) 11L, Monocytes (%) (Auto) 2, Eosinophils (%) (Auto) 0, Basophils (%) (Auto) 0, Neutrophils # (Auto) 4.6, Lymphocytes # (Auto) 0.6L, Monocytes # (Auto) 0.1, Eosinophils # (Auto) 0.0, Basophils # (Auto) 0.0, Immature Granulocyte # (Auto) 0.0, Sodium Level 136, Potassium Level 3.7, Chloride Level 99, Carbon Dioxide Level 26, Anion Gap 11, Blood Urea Nitrogen 13, Creatinine 0.82, Estimat Glomerular Filtration Rate 78, BUN/Creatinine Ratio 16, Glucose Level 190H, Calcium Level 8.6, Corrected Calcium 9.1, Phosphorus Level 2.6, Magnesium Level 1.7, Total Bilirubin 0.2, Aspartate Amino Transf (AST/SGOT) 15, Alanine Aminotransferase (ALT/SGPT) 13, Alkaline Phosphatase 90, Total Protein 5.7L, Albumin 3.4 03/06/23 05:15: Blood Gas Puncture Site LT RADIAL, Blood Gas Patient Temperature 36.6, Arterial Blood pH 7.39, Arterial Blood Partial Pressure CO2 52H, Arterial Blood Partial Pressure O2 77L, Arterial Blood HCO3 31H, Arterial Blood Total CO2 32.1H, Arterial Blood Oxygen Saturation 97, Arterial Blood Base Excess 5.6H, Simone Test YES-POS, Blood Gas Ventilator Setting NO, Blood Gas Inspired Oxygen 40% 03/06/23 05:45: Glucometer 208H 03/06/23 11:46: Glucometer 187H 03/06/23 17:19: Glucometer 136H 03/06/23 17:36: Blood Gas Puncture Site LEFT RADIAL, Blood Gas Patient Temperature 37.2, Arterial Blood pH 7.38, Arterial Blood Partial Pressure CO2 47H, Arterial Blood Partial Pressure O2 67L, Arterial Blood HCO3 27, Arterial Blood Total CO2 28.8, Arterial Blood Oxygen Saturation 93L, Arterial Blood Base Excess 2.8H, Simone Test YES-POS, Blood Gas Ventilator Setting YES, Blood Gas Inspired Oxygen 30 03/07/23 02:14: Glucometer 172H Microbiology 03/05/23 MRSA Screen - Final, Complete No growth 03/05/23 Blood Culture - Preliminary, Resulted No growth Assessment/Plan Assessment/Plan Assess & Plan/Chief Complaint Assessment: Acute hypoxic hypercapnic respiratory failure now extubated Acute exacerbation of COPD on IV Decadron Pneumonia on chest x-ray on Levaquin Former smoker Severe restless leg syndrome Neuropathy Depression History of opioid addiction Plan: Supportive care Move to 4th IV antibiotics Lovenox for DVT prophylaxis IV steroids Echo reviewed Monitor closely ANIKA DAWSON DO March 07, 2023 04:21
[2023-03-07 04:25] LABS: BASOPHILS % (AUTO) 0 % (0-10); EOSINOPHILS % (AUTO) 0 % (0-10); HEMATOCRIT 39 % (35-52); HEMOGLOBIN 12.8 g/dL (11.5-16.0); LYMPHOCYTES # (AUTO) 0.7 10^3/uL (1.0-4.0); LYMPHOCYTES % (AUTO) 4 % (12-44); MEAN CORPUSCULAR HEMOGLOBIN 32 pg (25-34); MEAN CORPUSCULAR HGB CONC 33 g/dL (32-36); MEAN CORPUSCULAR VOLUME 96 fL (80-99); MONOCYTES # (AUTO) 0.5 10^3/uL (0.0-1.0); MONOCYTES % (AUTO) 3 % (0-12); NEUTROPHILS # (AUTO) 18.7 10^3/uL (1.8-7.8); NEUTROPHILS % (AUTO) 93 % (42-75); PLATELET COUNT 204 10^3/uL (130-400); WHITE BLOOD COUNT 20.1 10^3/uL (4.3-11.0)
[2023-03-07 04:49] LABS: ALBUMIN 3.2 GM/DL (3.2-4.5); POTASSIUM 4.5 MMOL/L (3.6-5.0)
[2023-03-07 04:50] LABS: CALCIUM 8.3 MG/DL (8.5-10.1)
[2023-03-07 04:52] LABS: TOTAL PROTEIN 5.4 GM/DL (6.4-8.2)
[2023-03-07 04:53] LABS: BILIRUBIN,TOTAL 0.2 MG/DL (0.1-1.0)
[2023-03-07 04:55] LABS: CREATININE SERUM 0.73 MG/DL (0.60-1.30); PHOSPHORUS 2.9 MG/DL (2.3-4.7)
[2023-03-07 04:58] LABS: MAGNESIUM 2.1 MG/DL (1.6-2.4)
[2023-03-07 05:01] LABS: ANISOCYTOSIS SLIGHT; BAND NEUTROPHILS 2 %; BASOPHILS % (MANUAL) 0 %; EOSINOPHILS % (MANUAL) 0 %; LYMPHOCYTES % (MANUAL) 7 %; MONOCYTES % (MANUAL) 4 %; NEUTROPHILS % (MANUAL) 87 %; POLYCHROMASIA SLIGHT
[2023-03-07] MEDS: DexMEDEtomidine 250 ML DRIP 250 ML IV SCH (06:09)
[2023-03-07] MEDS: NS IV 1000 ML 1,000 ML IV SCH (06:09)
[2023-03-07] MEDS: MAGNESIUM 1 GM/100 ML IVPB 100 ML IV SCH (06:13)
[2023-03-07] MEDS: POTASSIUM CL 10MEQ/50ML IVPB 50 ML IV SCH (06:13)
[2023-03-07] MEDS: KCL 20 MEQ TAB (K-DUR) PO SCH (06:13)
[2023-03-07] MEDS: PANTOPRAZOLE 40 MG (PROTONIX) VIAL IV SCH (08:15)
[2023-03-07] MEDS: DOCUSATE SODIUM 100 MG (COLACE) CAP PO SCH ×2 (08:23→21:48)
[2023-03-07] MEDS: SENNOSIDES 8.6 MG (SENOKOT) TAB PO SCH ×2 (08:23→21:49)
--- NOTE | 2023-03-07 08:29 | Diagnostic Imaging Report ---
INDICATION: COPD. Frontal chest obtained at 4:25 a.m. compared to yesterday. FINDINGS: ET tube and NG tube have been removed. There is cardiomegaly. There is some mild bibasilar atelectatic change versus infiltrate. There is no pneumothorax or pleural fluid. IMPRESSION: Cardiomegaly. Mild bibasilar infiltrate versus atelectasis with no pneumothorax or pleural fluid. Dictated by: Dictated on workstation # [id number]
[2023-03-07] MEDS: PANTOPRAZOLE 40 MG (PROTONIX) TAB PO SCH (09:00)
[2023-03-07] MEDS ORDERED: PANTOPRAZOLE 20 MG TABLET (PROTONIX) PO SCH (09:00)
[2023-03-07] MEDS ORDERED: NON-FORMULARY MEDICATION 1 EA EA (Fluticasone/Umeclidin/Vilanter (Trelegy Ellipta 200-62.5 INH SCH (09:00)
[2023-03-07] MEDS: FUROSEMIDE 20 MG (LASIX) TAB PO SCH (09:41)
[2023-03-07] MEDS: meTOproloL SUCCINATE 50 MG (TOPROL XL) TAB PO SCH (09:42)
[2023-03-07] MEDS: LORATADINE (CLARITIN) 10 MG TAB PO SCH (09:42)
[2023-03-07] MEDS: KCL 10 MEQ TAB (MICRO K) PO SCH (09:42)
[2023-03-07] MEDS: lisINopril 10 MG (PRINIVIL) TABLET PO SCH (09:42)
[2023-03-07] MEDS: VENlafaxine XR 75 MG (EFFEXOR XR) CAP PO SCH (09:42)
[2023-03-07] MEDS: rOPINIRole 1 MG (REQUIP) TABLET PO SCH ×3 (09:42→21:49)
[2023-03-07] MEDS: MELOXICAM 7.5 MG (MOBIC) TABLET PO SCH (09:42)
[2023-03-07] MEDS: CARISOPRODOL 350 MG (SOMA) TAB PO PRN (09:48)
--- NOTE | 2023-03-07 09:50 | Physical Therapy Evaluation ---
PT Evaluation-General Medical Diagnosis Admission Date March 05, 2023 at 11:39 Medical Diagnosis: CAP Onset Date: March 05, 2023 Therapy Diagnosis Therapy Diagnosis: debility Height/Weight Height (Feet): 5 Height (Inches): 5.00 Weight (Pounds): 280 Precautions Precautions/Isolations: Fall Prevention, Standard Precautions Referral Physician: Nicholas Reason for Referral: Evaluation/Treatment Medical History Pertinent Medical History: COPD, Neuropathy Current History ER secondary to SOA and LBP Reviewed History: Yes Social History Home: Single Level Current Living Status: Spouse Prior Prior Level of Function SCALE: Activities may be completed with or without assistive devices. 9-Yspigaocpp-[id number] completes the activity by him/herself with no assistance from a helper. 5-Set-up or Clean-up Assistance-helper sets up or cleans up; patient completes activity. [place] assists only prior to or following the activity. 4-Supervision or Touching Assistance-helper provides verbal cues and/or touching/steadying and/or contact guard assistance as patient completes a ctivity. Assistance may be provided throughout the activity or intermittently. 3-Partial/Moderate Assistance-helper does LESS THAN HALF the effort. [place] lifts, holds or supports trunk or limbs, but provides less than half the effort. 2-Substantial/Maximal Assistance-helper does MORE THAN HALF the effort. [place] lifts or holds trunk or limbs and provides more than half the effort. 0-Dkjznwjdg-rirywt does ALL the effort. Patient does none of the effort to complete the activity. Or, the assistance of 2 or more helpers is required for the patient to complete the activity. If activity was not attempted, code reason: 7-Patient Refused. 9-Not Applicable-not attempted and the patient did not perform the activity before the current illness, exacerbation or injury. 10-Not Attempted due to Environmental Limitations-(lack of equipment, weather restraints, etc.). 88-Not Attempted due to Medical Conditions or Safety Concerns. Bed Mobility: 6 Transfers (B,C,W/C): 6 Gait: 6 Indoor Mobility (Ambulation): Independent Prior Devices Use: Walker (4WW) PT Evaluation-Current Subjective Patient agrees to PT. Objective Patient Orientation: Normal For Age Attachments: Oxygen, Barrett Catheter, IV ROM/Strength ROM Lower Extremities bilateral LE WFL Strength Lower Extremities 4/5 grossly bilateral LE all planes Integumentary/Posture Bladder Incontinence: Barrett Cath Posture WFL Neuromuscular (Tone, Coordination, Reflexes) grossly intact Sensory Vision: Functional Hearing: Functional Transfers Lying to Sitting/Side of Bed(Q: 6 Sit to Stand (QC): 5 Chair/Oum-sw-Ianxn Xfer(QC): 5 Gait Mode of Locomotion: Walk Anticipated Mode of Locomotion: Walk Walk 10 feet (QC): 5 Gait Assistive Device: FWW Balance Sitting Static: Normal Sitting Dynamic: Normal Standing Static: Normal Standing Dynamic: Normal Assessment/Needs Patient will be seen short term by skilled PT to address functional strength and mobility to improve current LOF to safely return to home with spouse at maximum LOF. Rehab Potential: Fair PT Food And Beverage Associate Goals Food And Beverage Associate Goals PT Food And Beverage Associate Goals Time Frame: Mar 15, 2023 Roll Left & Right (QC): 6 Sit to Lying (QC): 6 Lying-Sitting on Side/Bed(QC): 6 Sit to Stand (QC): 6 Chair/Gpd-nj-Aszxi Xfer(QC): 6 Toilet Transfer (QC): 6 Walk 10 feet (QC): 6 Walk 50ft with 2 Turns (QC): 6 Walk 150 ft (QC): 6 PT Plan Problem List Problem List: Activity Tolerance, Functional Strength, Gait, Transfer, Bed Mobility Treatment/Plan Treatment Plan: Continue Plan of Care Treatment Plan: Bed Mobility, Education, Functional Activity Corinne, Functional Strength, Gait, Safety, Therapeutic Exercise, Transfers Treatment Duration: Mar 15, 2023 Frequency: 6 times per week Estimated Hrs Per Day: .25 hour per day Patient and/or Family Agrees t: Yes Time Time In: 920 Time Out: 935 DATE: March 07, 2023 Total Billed Treatment Time: 15 Total Billed Treatment 1 visit [facility] 15 min CUATE PICKARD PT March 07, 2023 09:50
[2023-03-07 10:38] VITALS: BP 142/71
[2023-03-07 12:00] VITALS: BP 106/69
[2023-03-07] MEDS ORDERED: RT-ALBUTEROL/IPRATROPIUM 3 ML (DUONEB) VIAL INH PRN (12:00)
[2023-03-07] MEDS: UMECLIDINIUM BROMIDE (INCRUSE ELLIPTA) 7'S IH SCH (14:26)
[2023-03-07] MEDS: FLUTICASONE/VILANTEROL 200 MCG 14'S (BREO) IH SCH (14:26)
--- NOTE | 2023-03-07 16:23 | Tele-ICU Progress Note ---
Subjective Date Seen by a Provider: March 07, 2023 Time Seen by a Provider: 16:23 Subjective/Events-last exam (Tele-ICU Physician , Progress Note ) Service provided via interactive audio and video telecommunications E-CARE system to a patient admitted to ICU bed in [facility]. Patient is seen today due to persistent need of ICU care Available chart/ vitals / labs / Images reviewed Video assessment done using teleICU camera, rest of exam as per RN Discussed with RN Events overnight : Afebrile hemodynamically stable Respiratory - 40 % . +10 I/O =+ Drips: 100 ns Pressors- no Hospital course: (03/05) 67 y/o F - Pneumonia - COPD - Failed BiPAP - Intubated. 03/06 40% PEEP10, hypotensiove- NS boluses ( BP improved with disconnecting from vent - was placed on CPAP ) ECHO pending , propofol 20, precedex 0.6 - EXTUBATED 03/07 - 2 l NC A/P Acute hypercarbic respiratory failure on chronic resp failure = (03/05) - Failed BiPAP - Intubated. -03/06 Extubated - minimal secretions Hypotension 03/06 - not acidotoc , no bleedoing - NS boluses fiven > 1 L , - suspected some component of autoPEEp - BP improved with disconnecting from vent - was placed on CPAP - and eventually extubated in few hours -ECHO 03/06/23 EF 65% , RVSP not able to estimate AECOPD - decadron IV - mebs PNA - levofloxacin 03/06 ( leukocytosis is due to steroids Hyperglycemia - ? decadron chronic hypercarbic and hypoxic respiratory failure ( used her daughter nebulizers at home - to adress latter Chronic low back pain. - resume tramadol , prn tylenol ( questionable history of opioid abuse disorder - minimize opioid exposure now Nutrition - po Lines : per , (Central Line Necessity Reviewed) Barrett: + OG: Nutrition: to start TF 03/06 Analgesia: Anxiety/ delirium VTE Prophylaxis: ppi Stress Ulcer Prophylaxis: 40 Plans in collaboration with bedside consultants and IM MDs. Discussed with RN to reach out if any questions or concerns Case and care daily discussed on multidisciplinary rounds ( RN, PharmD, Sales Promotion Representative , Respiratory Therapy, plant maintenance worker ) A total of 25 minutes of critical care time was devoted to this patient today, required to treat and/or prevent further deterioration of critical care condition ( as above ) . I am remotely monitoring this patient from another state. I am unable to do the bedside exam, and history/physical and pertinent information is taken from other notes in the computer and bedside staff. Sepsis Event Evaluation Height, Weight, BMI Height: 5'5.00" Weight: 280lbs. oz. 127.562321ff; 45.67 BMI Method:Stated Focused Exam Lactate Level 03/05/23 07:45: Lactic Acid Level 1.27 Exam Exam Patient acknowledged, consented, and participated in this virtual visit which was conducted using real time audio/video Vital Signs Date Time Temp Pulse Resp B/P (MAP) Pulse Ox O2 Delivery O2 Flow Rate FiO2 03/07/23 14:31 Room Air 0.00 03/07/23 14:30 Room Air 0.00 03/07/23 14:26 95 Room Air 0.00 03/07/23 12:00 89 22 106/69 (81) 98 Room Air 03/07/23 12:00 97 Room Air 03/07/23 12:00 37.4 Room Air 03/07/23 10:45 Room Air 0.00 03/07/23 10:45 Room Air 03/07/23 10:38 36.9 98 96 28 03/07/23 10:34 96 High Flow N/C 2.00 03/07/23 09:00 88 26 142/71 (94) 97 High Flow N/C 2.00 03/07/23 08:00 84 33 132/54 (80) 96 High Flow N/C 2.00 03/07/23 08:00 36.9 High Flow N/C 2.00 03/07/23 08:00 98 High Flow N/C 2.00 03/07/23 07:00 81 38 159/82 (107) 94 High Flow N/C 2.00 03/07/23 07:00 80 03/07/23 06:56 96 High Flow N/C 2.00 03/07/23 06:52 High Flow N/C 2.00 03/07/23 06:47 97 High Flow N/C 4.00 03/07/23 06:09 68 163/80 03/07/23 06:00 67 153/78 (103) 97 High Flow N/C 4.00 03/07/23 05:00 71 148/77 (100) 97 High Flow N/C 4.00 03/07/23 04:00 92 144/71 (95) 97 High Flow N/C 4.00 03/07/23 04:00 100 High Flow N/C 4.00 03/07/23 03:00 76 145/72 (96) 97 High Flow N/C 4.00 03/07/23 02:34 98 High Flow N/C 4.00 03/07/23 02:00 94 144/68 (93) 97 High Flow N/C 4.00 03/07/23 01:00 100 03/07/23 01:00 96 25 148/80 (102) 97 High Flow N/C 4.00 03/07/23 00:00 99 High Flow N/C 4.00 03/07/23 00:00 78 37 149/79 (102) 97 High Flow N/C 4.00 03/06/23 23:00 98 34 135/74 (94) 99 High Flow N/C 4.00 03/06/23 22:16 99 High Flow N/C 6.00 03/06/23 22:00 High Flow N/C 4.00 03/06/23 22:00 98 23 131/68 (89) 99 High Flow N/C 6.00 03/06/23 21:00 107 34 122/78 (93) 99 High Flow N/C 6.00 03/06/23 20:00 100 High Flow N/C 6.00 03/06/23 20:00 113 25 124/69 (87) 99 High Flow N/C 6.00 03/06/23 19:38 110 129/72 03/06/23 19:20 37.1 03/06/23 19:00 112 03/06/23 19:00 High Flow N/C 6.00 03/06/23 19:00 114 18 120/67 (84) 100 High Flow N/C 6.00 03/06/23 18:30 105 24 100 03/06/23 18:26 High Flow N/C 10.00 03/06/23 18:00 101 26 114/60 (78) 98 Mechanical Ventilator 30.00 03/06/23 17:23 105 112/60 03/06/23 17:00 108 18 107/58 (74) 98 Mechanical Ventilator 30.00 03/06/23 16:59 105 100/50 I & O 03/07/23 07:00 Intake Total 6460 ml Output Total 3415 ml Balance 3045 ml Height & Weight Height: 5'5.00" Weight: 280lbs. oz. [id number]; 45.67 BMI Method:Stated General Appearance: WD/WN, Chronically ill, Mild Distress Respiratory: No Accessory Muscle Use, No Respiratory Distress, Accessory Muscle Use, Decreased Breath Sounds Cardiovascular: Regular Rate, Rhythm, No Edema, No Gallop, No JVD, No Murmur, Normal Peripheral Pulses Capillary Refill: Less Than 3 Seconds Gastrointestinal: normal bowel sounds, non tender, soft, no organomegaly Neurologic/Psychiatric: Alert Results Lab Laboratory Tests 03/06/23 04:47 03/07/23 04:00 Assessment/Plan Assessment/Plan 1 BERNICE MEDINA MD March 07, 2023 16:23
[2023-03-07 16:43] VITALS: BP 152/79
[2023-03-07 19:49] VITALS: BP 167/69
[2023-03-07] MEDS ORDERED: traZODone 150 MG (DESYREL) TABLET PO SCH (21:00)
[2023-03-07] MEDS ORDERED: MIRTAZAPINE 15 MG (REMERON) TAB PO SCH (21:00)
[2023-03-07 23:12] VITALS: BP 147/71
[2023-03-08] MEDS: RT-ALBUTEROL/IPRATROPIUM 3 ML (DUONEB) VIAL INH SCH ×3 (02:19→10:39)
[2023-03-08] MEDS: ENOXAPARIN 40 MG/0.4 ML (LOVENOX) SYR SC SCH (02:28)
[2023-03-08] MEDS: CARISOPRODOL 350 MG (SOMA) TAB PO PRN (03:56)
[2023-03-08 04:08] VITALS: BP 134/70
--- NOTE | 2023-03-08 06:12 | Progress Note ---
Subjective Date Seen by a Provider: March 08, 2023 Time Seen by a Provider: 11:00 Focused Exam Lactate Level 03/05/23 07:45: Lactic Acid Level 1.27 Objective Exam Last Set of Vital Signs Vital Signs Date Time Temp Pulse Resp B/P (MAP) Pulse Ox O2 Delivery O2 Flow Rate FiO2 03/08/23 04:08 102 18 134/70 (91) 92 Room Air 03/08/23 02:19 0.00 03/07/23 23:12 36.6 03/07/23 10:38 28 Capillary Refill : Less Than 3 Seconds I&O Intake and Output 03/08/23 00:00 Intake Total 3480 ml Output Total 3250 ml Balance 230 ml Intake Oral 2080 ml IV Total 1400 ml Output Urine Total 3250 ml # Voids 1 Results Lab Laboratory Tests 03/07/23 11:24: Glucometer 111H 03/07/23 16:37: Glucometer 106 03/07/23 22:01: Glucometer 109 Microbiology 03/05/23 MRSA Screen - Final, Complete No growth 03/05/23 Blood Culture - Preliminary, Resulted No growth Assessment/Plan Assessment/Plan Assess & Plan/Chief Complaint Assessment: Acute hypoxic hypercapnic respiratory failure now extubated Acute exacerbation of COPD on IV Decadron Pneumonia on chest x-ray on Levaquin Former smoker Severe restless leg syndrome Neuropathy Depression History of opioid addiction Plan: Supportive care Move to 4th IV antibiotics Lovenox for DVT prophylaxis IV steroids Echo reviewed Monitor closely ANIKA DAWSON DO March 08, 2023 06:12
[2023-03-08 06:25] LABS: BASOPHILS % (AUTO) 0 % (0-10); EOSINOPHILS % (AUTO) 0 % (0-10); HEMATOCRIT 40 % (35-52); HEMOGLOBIN 13.1 g/dL (11.5-16.0); LYMPHOCYTES % (AUTO) 6 % (12-44); MEAN CORPUSCULAR HEMOGLOBIN 32 pg (25-34); MEAN CORPUSCULAR HGB CONC 33 g/dL (32-36); MEAN CORPUSCULAR VOLUME 95 fL (80-99); MEAN PLATELET VOLUME 9.6 fL (9.0-12.2); MONOCYTES # (AUTO) 0.4 10^3/uL (0.0-1.0); MONOCYTES % (AUTO) 3 % (0-12); NEUTROPHILS % (AUTO) 91 % (42-75); PLATELET COUNT 205 10^3/uL (130-400); WHITE BLOOD COUNT 16.6 10^3/uL (4.3-11.0)
[2023-03-08 06:46] LABS: ALBUMIN 3.3 GM/DL (3.2-4.5); BILIRUBIN,TOTAL 0.3 MG/DL (0.1-1.0); CALCIUM 8.4 MG/DL (8.5-10.1); CREATININE SERUM 0.77 MG/DL (0.60-1.30); MAGNESIUM 1.8 MG/DL (1.6-2.4); POTASSIUM 4.2 MMOL/L (3.6-5.0); TOTAL PROTEIN 5.5 GM/DL (6.4-8.2)
[2023-03-08] MEDS: inSUlin ASPART (NovoLOG) 1 UNIT/0.01 ML (CHARGE PER UNIT) SC SCH ×2 (06:52)
[2023-03-08] MEDS: UMECLIDINIUM BROMIDE (INCRUSE ELLIPTA) 7'S IH SCH (06:55)
[2023-03-08] MEDS: FLUTICASONE/VILANTEROL 200 MCG 14'S (BREO) IH SCH (06:55)
[2023-03-08] MEDS ORDERED: MULTIVIT W/MINERALS TAB (THERAGRAN M) PO SCH (07:00)
[2023-03-08 08:08] VITALS: BP 159/72
[2023-03-08] MEDS: rOPINIRole 1 MG (REQUIP) TABLET PO SCH (08:23)
[2023-03-08] MEDS: KCL 10 MEQ TAB (MICRO K) PO SCH (08:23)
[2023-03-08] MEDS: PANTOPRAZOLE 40 MG (PROTONIX) TAB PO SCH (08:23)
[2023-03-08] MEDS: VENlafaxine XR 75 MG (EFFEXOR XR) CAP PO SCH (08:23)
[2023-03-08] MEDS: FUROSEMIDE 20 MG (LASIX) TAB PO SCH (08:24)
[2023-03-08] MEDS: LORATADINE (CLARITIN) 10 MG TAB PO SCH (08:24)
[2023-03-08] MEDS: MELOXICAM 7.5 MG (MOBIC) TABLET PO SCH (08:24)
[2023-03-08] MEDS: meTOproloL SUCCINATE 50 MG (TOPROL XL) TAB PO SCH (08:24)
[2023-03-08] MEDS: lisINopril 10 MG (PRINIVIL) TABLET PO SCH (08:24)
[2023-03-08] MEDS: DOCUSATE SODIUM 100 MG (COLACE) CAP PO SCH (08:25)
[2023-03-08] MEDS: SENNOSIDES 8.6 MG (SENOKOT) TAB PO SCH (08:25)
--- NOTE | 2023-03-08 08:59 | Physical Therapy Daily Note ---
PT Daily Note-Current Subjective Patient agrees to PT. She states she hopes to go home today. Pain Section J - Health Conditions 1. Rarely or not at all 2. Occasionally 3. Frequently 4. Almost constantly 8. Unable to answer Pain Effect on Sleep: 1 Pain Interference with Therapy: 1 Pain Interference w/Day-to-Day: 1 Transfers SCALE: Activities may be completed with or without assistive devices. 0-Ujdkwqwbhb-ibcthsk completes the activity by him/herself with no assistance from a helper. 5-Set-up or Clean-up Assistance-helper sets up or cleans up; patient completes activity. [place] assists only prior to or following the activity. 4-Supervision or Touching Assistance-helper provides verbal cues and/or touching/steadying and/or contact guard assistance as patient completes activity. Assistance may be provided throughout the activity or intermittently. 3-Partial/Moderate Assistance-helper does LESS THAN HALF the effort. [place] lifts, holds or supports trunk or limbs, but provides less than half the effort. 2-Substantial/Maximal Assistance-helper does MORE THAN HALF the effort. [place] lifts or holds trunk or limbs and provides more than half the effort. 8-Zxezotxns-nucsaq does ALL the effort. Patient does none of the effort to complete the activity. Or, the assistance of 2 or more helpers is required for the patient to complete the activity. If activity was not attempted, code reason: 7-Patient Refused. 9-Not Applicable-not attempted and the patient did not perform the activity before the current illness, exacerbation or injury. 10-Not Attempted due to Environmental Limitations-(lack of equipment, weather restraints, etc.). 88-Not Attempted due to Medical Conditions or Safety Concerns. Lying to Sitting/Side of Bed(Q: 6 Sit to Stand (QC): 6 Chair/Agy-il-Wzdnx Xfer(QC): 6 Gait Training Distance: 300' Walk 10 feet (QC): 6 Walk 50 ft with 2 Turns(QC): 6 Walk 150 ft (QC): 6 Gait Assistive Device: None safe and functional with no deviation Assessment Patient currently at independent PLOF with all gross motor skills and does not require continued skilled therapy. PT to dismiss patient from services at this time. PT [employer] Business Representative Goals [employer] Business Representative Goals PT Mcfp Goals Time Frame: Mar 15, 2023 Roll Left & Right (QC): 6 Sit to Lying (QC): 6 Lying-Sitting on Side/Bed(QC): 6 Sit to Stand (QC): 6 Chair/Xtc-vp-Fvidh Xfer(QC): 6 Toilet Transfer (QC): 6 Walk 10 feet (QC): 6 Walk 50ft with 2 Turns (QC): 6 Walk 150 ft (QC): 6 PT Plan Treatment/Plan Treatment Plan: Discontinue PT Treatment Plan: Bed Mobility, Education, Functional Activity Corinne, Functional Strength, Gait, Safety, Therapeutic Exercise, Transfers Treatment Duration: Mar 15, 2023 Frequency: 6 times per week Estimated Hrs Per Day: .25 hour per day Patient and/or Family Agrees t: Yes Time Time In: 814 Time Out: 822 DATE: March 08, 2023 Total Billed Treatment Time: 8 Total Billed Treatment 1 visit FA 8 min CUATE PICKARD PT March 08, 2023 08:59
[2023-03-08 11:35] VITALS: BP 130/65
[2023-03-08] MEDS ORDERED: LEVO750T PO (11:38)
[2023-03-08] MEDS ORDERED: LORA-404 PO (11:38)
[2023-03-08] MEDS ORDERED: PRED10TA22 PO (11:38)
--- NOTE | 2023-03-08 11:41 | Discharge Summary ---
Diagnosis/Chief Complaint Date of Admission March 05, 2023 at 11:39 Date of Discharge Discharge Date: March 08, 2023 Discharge Diagnosis Assessment: Acute hypoxic hypercapnic respiratory failure now extubated Acute exacerbation of COPD on IV Decadron Pneumonia on chest x-ray on Levaquin Former smoker Severe restless leg syndrome Neuropathy Depression History of opioid addiction Plan: Supportive care Move to 4th IV antibiotics Lovenox for DVT prophylaxis IV steroids Echo reviewed Monitor closely Discharge Summary Discharge Physical Examination Allergies: Coded Allergies: cephalexin (Verified Allergy, Severe, HIVES, 09/23/22) hydromorphone (Verified Allergy, Severe, COMA, 03/05/23) PT TOLERATED HYDROCODONE ON 01/25/23 codeine (Verified Allergy, Unknown, PT HAS TAKEN HYDROCODONE IN PAST, 03/05/23) famotidine (Verified Allergy, Unknown, 09/23/22) Vitals & I&Os Vital Signs Date Time Temp Pulse Resp B/P (MAP) Pulse Ox O2 Delivery O2 Flow Rate FiO2 03/08/23 11:35 36.6 104 18 130/65 (86) 94 Room Air 03/08/23 10:39 0.00 03/07/23 10:38 28 General Appearance: Alert, Oriented X3, Cooperative Respiratory: Clear to Auscultation Cardiovascular: Regular Rate Psych/Mental Status: Mental Status NL Hospital Course Was the Problem List Reviewed?: Yes Standard hospital course after she was admitted for hypercapnic hypoxic acute on chronic respiratory failure requiring intubation after failed BiPAP placed on Levaquin due to allergies cephalosporins for pneumonia along with IV steroids for her acute exacerbation of COPD. Labs remained stable. Patient was extubated and did very well lungs are clear at time of discharge did not require home oxygen she was discharged in improved condition Labs (last 24 hrs) Laboratory Tests 03/05/23 07:30: White Blood Count 9.2, Red Blood Count 4.54, Hemoglobin 14.3, Hematocrit 44, Mean Corpuscular Volume 98, Mean Corpuscular Hemoglobin 32, Mean Corpuscular Hemoglobin Concent 32, Red Cell Distribution Width 14.9H, Platelet Count 230, Mean Platelet Volume 9.7, Immature Granulocyte % (Auto) 0, Neutrophils (%) (Auto) 76H, Lymphocytes (%) (Auto) 17, Monocytes (%) (Auto) 5, Eosinophils (%) (Auto) 2, Basophils (%) (Auto) 0, Neutrophils # (Auto) 7.0, Lymphocytes # (Auto) 1.5, Monocytes # (Auto) 0.5, Eosinophils # (Auto) 0.1, Basophils # (Auto) 0.0, Immature Granulocyte # (Auto) 0.0, D-Dimer 0.46, Sodium Level 138, Potassium Level 4.8, Chloride Level 96L, Carbon Dioxide Level 34H, Anion Gap 8, Blood Urea Nitrogen 15, Creatinine 0.93, Estimat Glomerular Filtration Rate 67, BUN/Creatinine Ratio 16, Glucose Level 106H, Calcium Level 9.4, Corrected Calcium 9.4, Total Bilirubin 0.3, Aspartate Amino Transf (AST/SGOT) 15, Alanine Aminotransferase (ALT/SGPT) 12, Alkaline Phosphatase 115, B-Type Natriuretic Peptide 36.2, Total Protein 6.8, Albumin 4.0, Triglycerides Level 107 03/05/23 07:45: Lactic Acid Level 1.27 03/05/23 07:55: SARS-CoV-2 RNA (RT-PCR) Not Detected 03/05/23 08:40: Blood Gas Puncture Site L W, Blood Gas Patient Temperature 36.7, Arterial Blood pH 7.27*L, Arterial Blood Partial Pressure CO2 85*H, Arterial Blood Partial Pressure O2 88, Arterial Blood HCO3 38H, Arterial Blood Total CO2 40.5*H, Arterial Blood Oxygen Saturation 97, Arterial Blood Base Excess 10.8H, Simone Test , Blood Gas Ventilator Setting , Blood Gas Inspired Oxygen 3 L O2 03/05/23 10:30: Blood Gas Puncture Site LW, Blood Gas Patient Temperature 36.7, Arterial Blood pH 7.24*L, Arterial Blood Partial Pressure CO2 94*H, Arterial Blood Partial Pressure O2 121H, Arterial Blood HCO3 39H, Arterial Blood Total CO2 41.9*H, Arterial Blood Oxygen Saturation 99, Arterial Blood Base Excess 11.4H, Simone Test , Blood Gas Ventilator Setting NO, Blood Gas Inspired Oxygen 45% 03/05/23 11:39: Lab Scanned Report LAB Reports 03/05/23 11:52: Blood Gas Puncture Site R radial, Blood Gas Patient Temperature 36.0, Arterial Blood pH 7.48H, Arterial Blood Partial Pressure CO2 46H, Arterial Blood Partial Pressure O2 50L, Arterial Blood HCO3 34H, Arterial Blood Total CO2 35.5H, Arterial Blood Oxygen Saturation 92L, Arterial Blood Base Excess 9.8H, Simone Test YES-POS, Blood Gas Ventilator Setting YES, Blood Gas Inspired Oxygen 03/05/23 16:20: Blood Gas Puncture Site LEFT RADIAL, Blood Gas Patient Temperature 35.8, Arteri al Blood pH 7.49H, Arterial Blood Partial Pressure CO2 43, Arterial Blood Partial Pressure O2 68L, Arterial Blood HCO3 33H, Arterial Blood Total CO2 34.5H , Arterial Blood Oxygen Saturation 97, Arterial Blood Base Excess 9.0H, Simone Test YES-POS, Blood Gas Ventilator Setting YES, Blood Gas Inspired Oxygen 70 03/05/23 17:41: Glucometer 173H 03/05/23 23:24: Glucometer 194H 03/06/23 04:47: White Blood Count 5.3, Red Blood Count 4.20, Hemoglobin 13.1, Hematocrit 40, Mean Corpuscular Volume 95, Mean Corpuscular Hemoglobin 31, Mean Corpuscular Hemoglobin Concent 33, Red Cell Distribution Width 14.5, Platelet Count 212, Mean Platelet Volume 10.0, Immature Granulocyte % (Auto) 1, Neutrophils (%) (Auto) 86H, Lymphocytes (%) (Auto) 11L, Monocytes (%) (Auto) 2, Eosinophils (%) (Auto) 0, Basophils (%) (Auto) 0, Neutrophils # (Auto) 4.6, Lymphocytes # (Auto) 0.6L, Monocytes # (Auto) 0.1, Eosinophils # (Auto) 0.0, Basophils # (Auto) 0.0, Immature Granulocyte # (Auto) 0.0, Sodium Level 136, Potassium Level 3.7, Chloride Level 99, Carbon Dioxide Level 26, Anion Gap 11, Blood Urea Nitrogen 13, Creatinine 0.82, Estimat Glomerular Filtration Rate 78, BUN/Creatinine Ratio 16, Glucose Level 190H, Calcium Level 8.6, Corrected Calcium 9.1, Phosphorus Level 2.6, Magnesium Level 1.7, Total Bilirubin 0.2, Aspartate Amino Transf (AST/SGOT) 15, Alanine Aminotransferase (ALT/SGPT) 13, Alkaline Phosphatase 90, Total Protein 5.7L, Albumin 3.4 03/06/23 05:15: Blood Gas Puncture Site LT RADIAL, Blood Gas Patient Temperature 36.6, Arterial Blood pH 7.39, Arterial Blood Partial Pressure CO2 52H, Arterial Blood Partial Pressure O2 77L, Arterial Blood HCO3 31H, Arterial Blood Total CO2 32.1H, Arterial Blood Oxygen Saturation 97, Arterial Blood Base Excess 5.6H, Simone Test YES-POS, Blood Gas Ventilator Setting NO, Blood Gas Inspired Oxygen 40% 03/06/23 05:45: Glucometer 208H 03/06/23 11:46: Glucometer 187H 03/06/23 17:19: Glucometer 136H 03/06/23 17:36: Blood Gas Puncture Site LEFT RADIAL, Blood Gas Patient Temperature 37.2, Arterial Blood pH 7.38, Arterial Blood Partial Pressure CO2 47H, Arterial Blood Partial Pressure O2 67L, Arterial Blood HCO3 27, Arterial Blood Total CO2 28.8, Arterial Blood Oxygen Saturation 93L, Arterial Blood Base Excess 2.8H, Simone Test YES-POS, Blood Gas Ventilator Setting YES, Blood Gas Inspired Oxygen 30 03/07/23 02:14: Glucometer 172H 03/07/23 04:00: White Blood Count 20.1H, Red Blood Count 4.05, Hemoglobin 12.8, Hematocrit 39, Mean Corpuscular Volume 96, Mean Corpuscular Hemoglobin 32, Mean Corpuscular Hemoglobin Concent 33, Red Cell Distribution Width 15.2H, Platelet Count 204, Mean Platelet Volume 10.0, Immature Granulocyte % (Auto) 1, Neutrophils (%) (Auto) 93H, Lymphocytes (%) (Auto) 4L, Monocytes (%) (Auto) 3, Eosinophils (%) (Auto) 0, Basophils (%) (Auto) 0, Neutrophils # (Auto) 18.7H, Lymphocytes # (Auto) 0.7L, Monocytes # (Auto) 0.5, Eosinophils # (Auto) 0.0, Basophils # (Auto) 0.0, Immature Granulocyte # (Auto) 0.1, Neutrophils % (Manual) 87, Lymphocytes % (Manual) 7, Monocytes % (Manual) 4, Eosinophils % (Manual) 0, Basophils % (Manual) 0, Band Neutrophils 2, Polychromasia SLIGHT, Anisocytosis SLIGHT, Sodium Level 137, Potassium Level 4.5, Chloride Level 105, Carbon Dioxide Level 24, Anion Gap 8, Blood Urea Nitrogen 12, Creatinine 0.73, Estimat Glomerular Filtration Rate 90, BUN/Creatinine Ratio 16, Glucose Level 151H, Calcium Level 8.3L, Corrected Calcium 8.9, Phosphorus Level 2.9, Magnesium Level 2.1, Total Bilirubin 0.2, Aspartate Amino Transf (AST/SGOT) 20, Alanine Aminotransferase (ALT/SGPT) 12, Alkaline Phosphatase 78, Total Protein 5.4L, Albumin 3.2 03/07/23 11:24: Glucometer 111H 03/07/23 16:37: Glucometer 106 03/07/23 22:01: Glucometer 109 03/08/23 06:13: White Blood Count 16.6H, Red Blood Count 4.16, Hemoglobin 13.1, Hematocrit 40, Mean Corpuscular Volume 95, Mean Corpuscular Hemoglobin 32, Mean Corpuscular Hemoglobin Concent 33, Red Cell Distribution Width 15.0H, Platelet Count 205, Mean Platelet Volume 9.6, Immature Granulocyte % (Auto) 1, Neutrophils (%) (Auto) 91H, Lymphocytes (%) (Auto) 6L, Monocytes (%) (Auto) 3, Eosinophils (%) (Auto) 0, Basophils (%) (Auto) 0, Neutrophils # (Auto) 15.0H, Lymphocytes # (Auto) 1.0, Monocytes # (Auto) 0.4, Eosinophils # (Auto) 0.0, Basophils # (Auto) 0.0, Immature Granulocyte # (Auto) 0.1, Sodium Level 137, Potassium Level 4.2, Chloride Level 102, Carbon Dioxide Level 27, Anion Gap 8, Blood Urea Nitrogen 12, Creatinine 0.77, Estimat Glomerular Filtration Rate 84, BUN/Creatinine Ratio 16, Glucose Level 140H, Calcium Level 8.4L, Corrected Calcium 9.0, Magnesium Level 1.8, Total Bilirubin 0.3, Aspartate Amino Transf (AST/SGOT) 16, Alanine Aminotransferase (ALT/SGPT) 12, Alkaline Phosphatase 79, Total Protein 5.5L, Albumin 3.3 Microbiology 03/05/23 MRSA Screen - Final, Complete No growth 03/05/23 Blood Culture - Preliminary, Resulted No growth Pending Labs Microbiology Date/Time Source Procedure Growth Status 03/05/23 12:20 Nasal MRSA Screen - Final No growth Complete 03/05/23 11:26 Sputum Endotracheal Gram Stain - Final Complete 03/05/23 11:26 Sputum Culture - Final Usual upper respiratory anand Complete 03/05/23 08:12 Peripheral Rt Ac Blood Culture - Preliminary No growth Resulted 03/05/23 07:45 Peripheral Lt Ac Blood Culture - Preliminary No growth Resulted Laboratory Tests 03/05/23 07:30: White Blood Count 9.2, Red Blood Count 4.54, Hemoglobin 14.3, Hematocrit 44, Mean Corpuscular Volume 98, Mean Corpuscular Hemoglobin 32, Mean Corpuscular Hemoglobin Concent 32, Red Cell Distribution Width 14.9, Platelet Count 230, Mean Platelet Volume 9.7, Immature Granulocyte % (Auto) 0, Neutrophils (%) (Auto) 76, Lymphocytes (%) (Auto) 17, Monocytes (%) (Auto) 5, Eosinophils (%) (Auto) 2, Basophils (%) (Auto) 0, Neutrophils # (Auto) 7.0, Lymphocytes # (Auto) 1.5, Monocytes # (Auto) 0.5, Eosinophils # (Auto) 0.1, Basophils # (Auto) 0.0, Immature Granulocyte # (Auto) 0.0, D-Dimer 0.46, Sodium Level 138, Potassium Level 4.8, Chloride Level 96, Carbon Dioxide Level 34, Anion Gap 8, Blood Urea Nitrogen 15, Creatinine 0.93, Estimat Glomerular Filtration Rate 67, BUN/Creatinine Ratio 16, Glucose Level 106, Calcium Level 9.4, Corrected Calcium 9.4, Total Bilirubin 0.3, Aspartate Amino Transf (AST/SGOT) 15, Alanine Aminotransferase (ALT/SGPT) 12, Alkaline Phosphatase 115, B-Type Natriuretic Peptide 36.2, Total Protein 6.8, Albumin 4.0, Triglycerides Level 107 03/05/23 07:45: Lactic Acid Level 1.27 03/05/23 07:55: SARS-CoV-2 RNA (RT-PCR) Not Detected 03/05/23 08:40: Blood Gas Puncture Site L W, Blood Gas Patient Temperature 36.7, Arterial Blood pH 7.27, Arterial Blood Partial Pressure CO2 85, Arterial Blood Partial Pressure O2 88, Arterial Blood HCO3 38, Arterial Blood Total CO2 40.5, Arterial Blood Oxygen Saturation 97, Arterial Blood Base Excess 10.8, Simone Test , Blood Gas Ventilator Setting , Blood Gas Inspired Oxygen 3 L O2 03/05/23 10:30: Blood Gas Puncture Site LW, Blood Gas Patient Temperature 36.7, Arterial Blood pH 7.24, Arterial Blood Partial Pressure CO2 94, Arterial Blood Partial Pressure O2 121, Arterial Blood HCO3 39, Arterial Blood Total CO2 41.9, Arterial Blood Oxygen Saturation 99, Arterial Blood Base Excess 11.4, Simone Test , Blood Gas Ventilator Setting NO, Blood Gas Inspired Oxygen 45% 03/05/23 11:39: Lab Scanned Report LAB Reports 03/05/23 11:52: Blood Gas Puncture Site R radial, Blood Gas Patient Temperature 36.0, Arterial Blood pH 7.48, Arterial Blood Partial Pressure CO2 46, Arterial Blood Partial Pr essure O2 50, Arterial Blood HCO3 34, Arterial Blood Total CO2 35.5, Arterial Blood Oxygen Saturation 92, Arterial Blood Base Excess 9.8, Simone Test YES-POS, Blood Gas Ventilator Setting YES, Blood Gas Inspired Oxygen 03/05/23 16:20: Blood Gas Puncture Site LEFT RADIAL, Blood Gas Patient Temperature 35.8, Arterial Blood pH 7.49, Arterial Blood Partial Pressure CO2 43, Arterial Blood Partial Pressure O2 68, Arterial Blood HCO3 33, Arterial Blood Total CO2 34.5, Arterial Blood Oxygen Saturation 97, Arterial Blood Base Excess 9.0, Simone Test YES-POS, Blood Gas Ventilator Setting YES, Blood Gas Inspired Oxygen 70 03/05/23 17:41: Glucometer 173 03/05/23 23:24: Glucometer 194 03/06/23 04:47: White Blood Count 5.3, Red Blood Count 4.20, Hemoglobin 13.1, Hematocrit 40, Mean Corpuscular Volume 95, Mean Corpuscular Hemoglobin 31, Mean Corpuscular Hemoglobin Concent 33, Red Cell Distribution Width 14.5, Platelet Count 212, Mean Platelet Volume 10.0, Immature Granulocyte % (Auto) 1, Neutrophils (%) (Auto) 86, Lymphocytes (%) (Auto) 11, Monocytes (%) (Auto) 2, Eosinophils (%) (Auto) 0, Basophils (%) (Auto) 0, Neutrophils # (Auto) 4.6, Lymphocytes # (Auto) 0.6, Monocytes # (Auto) 0.1, Eosinophils # (Auto) 0.0, Basophils # (Auto) 0.0, Immature Granulocyte # (Auto) 0.0, Sodium Level 136, Potassium Level 3.7, Chloride Level 99, Carbon Dioxide Level 26, Anion Gap 11, Blood Urea Nitrogen 13, Creatinine 0.82, Estimat Glomerular Filtration Rate 78, BUN/Creatinine Ratio 16, Glucose Level 190, Calcium Level 8.6, Corrected Calcium 9.1, Phosphorus Level 2.6, Magnesium Level 1.7, Total Bilirubin 0.2, Aspartate Amino Transf (AST/SGOT) 15, Alanine Aminotransferase (ALT/SGPT) 13, Alkaline Phosphatase 90, Total Protein 5.7, Albumin 3.4 03/06/23 05:15: Blood Gas Puncture Site LT RADIAL, Blood Gas Patient Temperature 36.6, Arterial Blood pH 7.39, Arterial Blood Partial Pressure CO2 52, Arterial Blood Partial Pressure O2 77, Arterial Blood HCO3 31, Arterial Blood Total CO2 32.1, Arterial Blood Oxygen Saturation 97, Arterial Blood Base Excess 5.6, Simone Test YES-POS, Blood Gas Ventilator Setting NO, Blood Gas Inspired Oxygen 40% 03/06/23 05:45: Glucometer 208 03/06/23 11:46: Glucometer 187 03/06/23 17:19: Glucometer 136 03/06/23 17:36: Blood Gas Puncture Site LEFT RADIAL, Blood Gas Patient Temperature 37.2, Arterial Blood pH 7.38, Arterial Blood Partial Pressure CO2 47, Arterial Blood Partial Pressure O2 67, Arterial Blood HCO3 27, Arterial Blood Total CO2 28.8, Arterial Blood Oxygen Saturation 93, Arterial Blood Base Excess 2.8, Simone Test YES-POS, Blood Gas Ventilator Setting YES, Blood Gas Inspired Oxygen 30 03/07/23 02:14: Glucometer 172 03/07/23 04:00: White Blood Count 20.1, Red Blood Count 4.05, Hemoglobin 12.8, Hematocrit 39, Mean Corpuscular Volume 96, Mean Corpuscular Hemoglobin 32, Mean Corpuscular Hemoglobin Concent 33, Red Cell Distribution Width 15.2, Platelet Count 204, Mean Platelet Volume 10.0, Immature Granulocyte % (Auto) 1, Neutrophils (%) (Auto) 93, Lymphocytes (%) (Auto) 4, Monocytes (%) (Auto) 3, Eosinophils (%) (Auto) 0, Basophils (%) (Auto) 0, Neutrophils # (Auto) 18.7, Lymphocytes # (Auto) 0.7, Monocytes # (Auto) 0.5, Eosinophils # (Auto) 0.0, Basophils # (Auto) 0.0, Immature Granulocyte # (Auto) 0.1, Neutrophils % (Manual) 87, Lymphocytes % (Manual) 7, Monocytes % (Manual) 4, Eosinophils % (Manual) 0, Basophils % (Manual) 0, Band Neutrophils 2, Polychromasia SLIGHT, Anisocytosis SLIGHT, Sodium Level 137, Potassium Level 4.5, Chloride Level 105, Carbon Dioxide Level 24, Anion Gap 8, Blood Urea Nitrogen 12, Creatinine 0.73, Estimat Glomerular Filtration Rate 90, BUN/Creatinine Ratio 16, Glucose Level 151, Calcium Level 8.3, Corrected Calcium 8.9, Phosphorus Level 2.9, Magnesium Level 2.1, Total Bilirubin 0.2, Aspartate Amino Transf (AST/SGOT) 20, Alanine Aminotransferase (ALT/SGPT) 12, Alkaline Phosphatase 78, Total Protein 5.4, Albumin 3.2 03/07/23 11:24: Glucometer 111 03/07/23 16:37: Glucometer 106 03/07/23 22:01: Glucometer 109 03/08/23 06:13: White Blood Count 16.6, Red Blood Count 4.16, Hemoglobin 13.1, Hematocrit 40, Mean Corpuscular Volume 95, Mean Corpuscular Hemoglobin 32, Mean Corpuscular Hemoglobin Concent 33, Red Cell Distribution Width 15.0, Platelet Count 205, Mean Platelet Volume 9.6, Immature Granulocyte % (Auto) 1, Neutrophils (%) (Auto) 91, Lymphocytes (%) (Auto) 6, Monocytes (%) (Auto) 3, Eosinophils (%) (Auto) 0, Basophils (%) (Auto) 0, Neutrophils # (Auto) 15.0, Lymphocytes # (Auto) 1.0, Monocytes # (Auto) 0.4, Eosinophils # (Auto) 0.0, Basophils # (Auto) 0.0, Immature Granulocyte # (Auto) 0.1, Sodium Level 137, Potassium Level 4.2, Chloride Level 102, Carbon Dioxide Level 27, Anion Gap 8, Blood Urea Nitrogen 12, Creatinine 0.77, Estimat Glomerular Filtration Rate 84, BUN/Creatinine Ratio 16, Glucose Level 140, Calcium Level 8.4, Corrected Calcium 9.0, Magnesium Level 1.8, Total Bilirubin 0.3, Aspartate Amino Transf (AST/SGOT) 16, Alanine Aminotransferase (ALT/SGPT) 12, Alkaline Phosphatase 79, Total Protein 5.5, Albumin 3.3 Discharge Home Medications: Active Scripts Active Ativan (Lorazepam) 0.5 Mg Tablet 0.5 Mg PO TID PRN Prednisone 10 Mg Tab.ds.pk 10 Mg PO DAILY Take 6 tabs(60mg)daily,decrease by 1 tab(10MG)daily. Levofloxacin 750 Mg Tablet 750 Mg PO DAILY Albuterol Sulfate 2.5 Mg/3 Ml (0.083 %) Vial.neb 2.5 Mg INH Q6H PRN Reported B Complex (Vitamin B Complex) 1 Each Tablet 1 Each PO DAILY Atorvastatin Calcium 20 Mg Tablet 20 Mg PO DAILY Mirtazapine 30 Mg Tablet 30 Mg PO HS Metoprolol Succinate 50 Mg Tab.er.24h 50 Mg PO DAILY Lisinopril 10 Mg Tablet 10 Mg PO DAILY Loratadine 10 Mg Tablet 10 Mg PO DAILY Trelegy Ellipta 200-62.5-25 (Fluticasone/Umeclidin/Vilanter) 200-62.5 Blst.w.dev 1 Puff INH DAILY Ropinirole HCl 1 Mg Tablet 2 Mg PO TID TAKES 2 (1MG) TABS Furosemide 20 Mg Tablet 20 Mg PO DAILY Trazodone HCl 150 Mg Tablet 150 Mg PO HS Venlafaxine HCl ER (Venlafaxine HCl) 150 Mg Cap.er.24h 150 Mg PO DAILY Meloxicam 7.5 Mg Tablet 7.5 Mg PO DAILY Tramadol HCl 50 Mg Tablet 50-100 Mg PO TID PRN TAKES 1 TO 2 (50MG) TABS K-Tab ER (Potassium Chloride) 10 Meq Tablet.er 10 Meq PO DAILY Pantoprazole Sodium 20 Mg Tablet.dr 20 Mg PO DAILY Carisoprodol 350 Mg Tablet 350 Mg PO BID PRN Instructions to patient/family Please see electronic discharge instructions given to patient. ANIKA DAWSON DO March 08, 2023 11:41
[2023-03-08 12:44] VITALS: BP 130/65
== END 2023-03-08 12:43 | disposition home or self-care (01) | DRG 208 ==
LOC: EDUNIT# 07:22 → ER 07:25 → ICU 11:39 → 4TH 03-07 18:23
PROVIDERS: ADMIT Internal Medicine; ATTEND Internal Medicine
PROC: 5A1945Z Respiratory Ventilation, 24-96 Consecutive Hours (ICD-10-PCS; principal; 2023-03-05)
PROC: 0BH17EZ Insertion of Endotracheal Airway into Trachea, Via Natural or Artificial Opening (ICD-10-PCS; 2023-03-05)
PROC: 5A0935A Assistance with Respiratory Ventilation, Less than 24 Consecutive Hours, High Flow/Velocity Cannula (ICD-10-PCS; 2023-03-07)
DX: J18.9 Pneumonia, unspecified organism (principal); J96.21 Acute and chronic respiratory failure with hypoxia; J96.22 Acute and chronic respiratory failure with hypercapnia; J44.1 Chronic obstructive pulmonary disease with (acute) exacerbation; J44.0 Chronic obstructive pulmonary disease with (acute) lower respiratory infection; Z87.891 Personal history of nicotine dependence; G25.81 Restless legs syndrome; F32.A Depression, unspecified; G62.9 Polyneuropathy, unspecified; E78.00 Pure hypercholesterolemia, unspecified; G89.29 Other chronic pain; M54.9 Dorsalgia, unspecified; I10 Essential (primary) hypertension; K21.9 Gastro-esophageal reflux disease without esophagitis; Z20.822 Contact with and (suspected) exposure to COVID-19; I95.9 Hypotension, unspecified; R73.9 Hyperglycemia, unspecified
CPT/HCPCS: 31500; 36415; 36600; 71045; 80053; 82805; 82947; 83605; 83735; 83880; 84100; 84478; 85007; 85025; 85027; 85379; 87040; 87070; 87081; 87205; 87636; 93306; 94002; 94640; 94664; 94760; 94799; 99291